=== PATIENT | female | born 1950 | race Caucasian/White ===

== ENCOUNTER → 2016-04-18 | Outpatient (CLI) | payer MEDICARE, BC ==
--- NOTE | 2016-04-18 11:34 | FL ---
ESOPHOGRAM. HISTORY: Dysphagia Esophagram was performed per the air contrast technique. The patient swallowed barium and effervesce nt crystals without difficulty or delay. Esophageal peristalsis and motility appear to be within normal limits. There is no evidence for filling defect, mass or diverticulum. There is a small reducible hiatal hernia. Subsequently single contrast cervical esophagram was performed which fails demonstrate evidence for a spiration penetration or mass. IMPRESSION: There is a small reducible hiatal hernia.
== END | disposition home or self-care (01) ==
LOC: RADFLWHC 10:51
PROVIDERS: ATTEND Surgery
DX: K44.9 Diaphragmatic hernia without obstruction or gangrene (principal)
CPT/HCPCS: 74220

== ENCOUNTER → 2016-04-22 | Day surgery (SDC) | payer MEDICARE, BC ==
[2016-04-17 16:16] VITALS: BMI 33.0
[~2016-04-22] MED LIST: LACTATED RINGERS 1,000 ML IV SCH; LIDOCAINE 1% 20 ML VIAL (10MG/ML) FOR IV START INTRADERMA PRN; PROPOFOL 10 MG/ML 20 ML VIAL IV ONE
[2016-04-22 09:50] VITALS: RESP 16; TEMP 97.1
--- NOTE | 2016-04-22 10:15 | P.GSHP ---
History of Present Illness H&P Date: 04/22/16 Chief Complaint: . This is a 65-year-old female with complaints of GERD. Patient has a previous history of a vertical stapled gastroplasty performed over 30 years ago.. She states her GERD symptoms and increased over the last few months. - Constitutional Constitutional: Reports as per HPI Past Medical History Past Medical History: GERD/Reflux, Hyperlipidemia Additional Past Medical History / Comment(s): vertigo, DDD, gastric bypass History of Any Multi-Drug Resistant Organisms: None Reported Past Surgical History: Back Surgery, Bariatric Surgery, Hysterectomy, Joint Replacement, Orthopedic Surgery Additional Past Surgical History / Comment(s): fusion neck and back, bipin shoulder arthroscopy, rt ankle fusion surgery for gastric reflux Past Anesthesia/Blood Transfusion Reactions: Previous Problems w/ Anesthesia Additional Past Anesthesia/Blood Transfusion Reaction / Comment(s): difficulty coming out of anesthesia Past Psychological History: Anxiety Smoking Status: Former smoker Past Alcohol Use History: Rare Additional Past Alcohol Use History / Comment(s): smoked 20-30 years 2 ppd stopped 24 years ago Past Drug Use History: None Reported - Past Family History Mother Family Medical History: No Reported History Medications and Allergies Home Medications Medication Instructions Recorded Confirmed Type ALPRAZolam 1 mg PO BID 04/17/16 04/22/16 History Aspirin [Adult Low Dose Aspirin EC] 81 mg PO DAILY 04/17/16 04/17/16 History Celecoxib [CeleBREX] 200 mg PO DAILY 04/17/16 04/22/16 History Cholecalciferol [Vitamin D3] 1,000 unit PO DAILY 04/17/16 04/22/16 History Citalopram Hydrobromide 20 mg PO DAILY 04/17/16 04/22/16 History Ferrous Sulfate [Feosol] 325 mg PO DAILY 04/17/16 04/17/16 History HYDROcodone/APAP 7.5-325MG [[place] 1 tab PO DAILY PRN 04/17/16 04/22/16 History 7.5-325] Meclizine HCl 12.5 mg PO DAILY 04/17/16 04/22/16 History Multivitamins, Thera [Multivitamin] 1 tab PO DAILY 04/17/16 04/17/16 History [place]-3 Fatty Acids/Fish Oil [Fish 1 each PO DAILY 04/17/16 04/17/16 History Oil 1,000 mg Softgel] Ranitidine HCl 150 mg PO DAILY 04/17/16 04/22/16 History Simvastatin [Zocor] 40 mg PO DAILY 04/17/16 04/22/16 History Vitamin B Complex 1 each PO DAILY 04/17/16 04/22/16 History Allergies Allergy/AdvReac Type Severity Reaction Status Date / Time No Known Allergies Allergy Verified 04/17/16 15:49 Surgical - Exam Vital Signs Temp Pulse Resp BP Pulse Ox 97.1 F L 70 16 113/73 93 L 04/22/16 09:49 04/22/16 09:49 04/22/16 09:49 04/22/16 09:49 04/22/16 09:49 - General well developed, no distress - Eyes PERRL - ENT normal pinna - Neck no masses - Respiratory normal expansion - Cardiovascular Rhythm: regular - Abdomen Abdomen: soft, non tender Assessment and Plan Plan: GERD. We'll perform EGD
--- NOTE | 2016-04-22 10:34 | P.OP ---
Date of Procedure: 04/22/16 Preoperative Diagnosis: GERD Postoperative Diagnosis: Possible gastric outlet obstruction Procedure(s) Performed: EGD Anesthesia: MAC Surgeon: Escobar Silva Pathology: none sent Condition: stable Disposition: PACU Description of Procedure: The patient's placed on the endoscopy table in the lateral position. She received IV sedation. The gastroscope some placed oropharynx and passed into the esophagus and into the stomach. In the proximal stomach there appeared to be a slightly enlarged pouch with evidence of some blue suture material. There was an opening of the distal stomach and this was entered the gastric outlet could not be visualized. There was some retained food in the stomach. Multiple attempts were made to find the gastric outlet however this wasn't possible. Scope was then withdrawn. There is known to any injury to the stomach. The appearance of the gastric gastrostomy was patent. And then the GE junction was at 38 cm. There is evidence of some distal esophagitis. The proximal esophagus. Normal. Scope was withdrawn for patient. This patient was scheduled for upper GI with small bowel follow-through to evaluate gastric emptying.
[2016-04-22 11:36] VITALS: BP 107/55; PULSE 66
--- NOTE | 2016-04-22 15:20 | FL ---
EXAMINATION TYPE: FL UGI DATE OF EXAM: 04/22/2016 1:05 PM COMPARISON: CT chest 01/18/2016 HISTORY: Gastric outlet obstruction TECHNIQUE: A single contrast UGI study is performed. FINDINGS: The esophagus empties normally into the stomach. Reflux was evident during this examination. Fundus and body of the stomach appear normal. The antrum of the stomach appears to be resected with c ontrast entering the proximal duodenum within the upper portion of the stomach near the gastroesophag eal junction. There is marked hesitancy entering the suspected anastomosis of the duodenum with the s tomach. However, focal stenosis is not identified. Patient exhibited no symptoms of nausea during thi s delayed emptying. The duodenum appears normal without intraluminal or extramural defects. IMPRESSIONS: 1. There appears to be hesitancy of contrast entering what appears to be an anastomosis between the d uodenum and the body of the stomach near the gastroesophageal junction. Focal stenosis however is not identified. The proximal duodenum appears normal.
== END ==
LOC: ORWHC2ENDO 09:23
PROVIDERS: ATTEND Surgery
DX: K21.9 Gastro-esophageal reflux disease without esophagitis (principal); K31.89 Other diseases of stomach and duodenum; Z98.84 Bariatric surgery status; E78.5 Hyperlipidemia, unspecified; F41.9 Anxiety disorder, unspecified; F32.9 Major depressive disorder, single episode, unspecified; Z79.82 Long term (current) use of aspirin; Z79.891 Long term (current) use of opiate analgesic; Z79.899 Other long term (current) drug therapy; Z87.891 Personal history of nicotine dependence
CPT/HCPCS: 74240; 43235; J2704

== ENCOUNTER 2018-05-11 07:40 | Day surgery (SDC) | payer MEDICARE, BC ==
[2018-05-07 08:44] VITALS: BMI 32.3
[~2018-05-11 07:40] MED LIST changes: -LIDOCAINE 1% 20 ML VIAL (10MG/ML) FOR IV START INTRADERMA PRN; -PROPOFOL 10 MG/ML 20 ML VIAL IV ONE
[2018-05-11] MEDS ORDERED: LIDOCAINE 1% 20 ML VIAL (10MG/ML) FOR IV START INTRADERMA ONE (07:59)
[2018-05-11 08:00] VITALS: RESP 16; TEMP 97.2
[2018-05-11] MEDS ORDERED: MIDAZOLAM 2 MG/2 ML VIAL ONE (09:22)
[2018-05-11] MEDS ORDERED: LIDOCAINE 1% INJ 10MG/ML (20 ML MDV) ONE (09:22)
[2018-05-11] MEDS ORDERED: PROPOFOL 10 MG/ML 20 ML VIAL IV ONE (09:22)
--- NOTE | 2018-05-11 09:37 | P.GSHP ---
History of Present Illness H&P Date: 05/11/18 Chief Complaint: Screening colonoscopy This is a 68-year-old female who presents today for screening colonoscopy. Patient denies a significant GI complaints. Past Medical History Past Medical History: GERD/Reflux, Hyperlipidemia Additional Past Medical History / Comment(s): vertigo, DDD, gastric bypass History of Any Multi-Drug Resistant Organisms: None Reported Past Surgical History: Back Surgery, Bariatric Surgery, Hysterectomy, Joint Replacement, Orthopedic Surgery Additional Past Surgical History / Comment(s): fusion neck and back, bipin shoulder arthroscopy, rt ankle fusion surgery for gastric reflux, rt reverse shoulder, bipin knee replacement, lt hip replacement Past Anesthesia/Blood Transfusion Reactions: Previous Problems w/ Anesthesia Additional Past Anesthesia/Blood Transfusion Reaction / Comment(s): difficulty coming out of anesthesia Smoking Status: Former smoker - Past Family History Mother Family Medical History: Cancer Father Family Medical History: Cancer Medications and Allergies Home Medications Medication Instructions Recorded Confirmed Type Aspirin [Adult Low Dose Aspirin EC] 81 mg PO DAILY 04/17/16 05/11/18 History Celecoxib [CeleBREX] 200 mg PO DAILY 04/17/16 05/11/18 History Cholecalciferol [Vitamin D3] 1,000 unit PO DAILY 04/17/16 05/11/18 History Citalopram Hydrobromide 20 mg PO HS 04/17/16 05/11/18 History [Citalopram HBr] Ferrous Sulfate [Feosol] 325 mg PO DAILY 04/17/16 05/11/18 History Multivitamins, Thera [Multivitamin] 1 tab PO DAILY 04/17/16 05/11/18 History [place]-3 Fatty Acids/Fish Oil [Fish 1 each PO DAILY 04/17/16 05/11/18 History Oil 1,000 mg Softgel] Ranitidine HCl 150 mg PO DAILY 04/17/16 05/11/18 History Simvastatin [Zocor] 40 mg PO HS 04/17/16 05/11/18 History Vitamin B Complex 1 each PO DAILY 04/17/16 05/11/18 History ALPRAZolam [Xanax] 0.5 mg PO HS 05/07/18 05/11/18 History Omeprazole 40 mg PO HS 05/07/18 05/11/18 History Allergies Allergy/AdvReac Type Severity Reaction Status Date / Time No Known Allergies Allergy Verified 05/11/18 07:58 Surgical - Exam Vital Signs Temp Pulse Resp BP Pulse Ox 97.2 F L 86 16 134/71 95 05/11/18 07:59 05/11/18 07:59 05/11/18 07:59 05/11/18 07:59 05/11/18 07:59 - General well developed, well nourished, no distress - Eyes PERRL - ENT normal pinna - Neck no masses - Respiratory normal expansion - Cardiovascular Rhythm: regular - Abdomen Abdomen: soft, non tender Assessment and Plan Assessment: We'll perform screening colonoscopy.
--- NOTE | 2018-05-11 09:54 | P.OP ---
Date of Procedure: 05/11/18 Preoperative Diagnosis: Screening colonoscopy Postoperative Diagnosis: Mild diverticulosis Procedure(s) Performed: Colonoscopy Anesthesia: MAC Surgeon: Escobar Silva Pathology: none sent Condition: stable Disposition: PACU Description of Procedure: The patient's placed on the endoscopy table in the lateral position. She received IV sedation. Digital rectal exam was performed which revealed no rebound is. The flexible colonoscope was then placed patient anus and passed throughout the entire colon. The ileocecal valve was visualized. The cecum, ascending and transverse colon appeared normal. The descending and sigmoid colon there was a few scattered diverticula. There is no evidence of any polyps or tumors. Scope was then brought back into the rectum and this appeared normal. Scope was withdrawn for patient.
[2018-05-11 10:19] VITALS: BP 116/75; PULSE 70
== END 2018-05-11 10:33 | disposition home or self-care (01) ==
LOC: ORWHC2ENDO 07:40
PROVIDERS: ATTEND Surgery
DX: Z12.11 Encounter for screening for malignant neoplasm of colon (principal); K57.90 Diverticulosis of intestine, part unspecified, without perforation or abscess without bleeding; K21.9 Gastro-esophageal reflux disease without esophagitis; E78.5 Hyperlipidemia, unspecified; Z98.84 Bariatric surgery status; Z90.710 Acquired absence of both cervix and uterus; Z87.891 Personal history of nicotine dependence; Z79.82 Long term (current) use of aspirin; Z79.899 Other long term (current) drug therapy
CPT/HCPCS: J2250; J2001; J2704; G0121

== ENCOUNTER → 2019-03-10 | Outpatient (CLI) | payer MEDICARE, BC ==
--- NOTE | 2019-03-10 11:40 | XR ---
KUB HISTORY: Left upper quadrant pain, left-sided abdominal pain KUB submitted on 2 images There are surgical maira and clips present in the upper abdomen, postop changes are noted status po st lumbosacral fusion. No evident bowel obstruction or pneumoperitoneum. Multiple calcifications in t he pelvis felt likely represent phleboliths. Patient is status post left hip arthroplasty. Osteoarthr itic change noted in right hip. Degenerative disc changes in the visualized spine. Retained fecal ruby ris present within the distribution of the colon. IMPRESSION: Postop changes. Correlate for possible fecal stasis.
--- NOTE | 2019-03-10 11:46 | XR ---
EXAMINATION TYPE: XR chest 2V DATE OF EXAM: 03/10/2019 COMPARISON: Prior chest x-ray 10/29/2015 HISTORY: Left upper quadrant pain, left-sided chest pain TECHNIQUE: Frontal and lateral views of the chest are obtained. FINDINGS: Patient is status post right shoulder arthroplasty. Suspect there is a spinal curvature. C ardiac mediastinal silhouette, pulmonary vascularity and yasmin within normal limits. No evident airspa ce disease, pneumothorax, or pleural effusion. There is eventration of the right hemidiaphragm. Surgi mikki clips are present in the upper abdomen. IMPRESSION: No acute cardiopulmonary process.
== END | disposition home or self-care (01) ==
LOC: RADXRMAIN 10:05
PROVIDERS: ATTEND Family Medicine
DX: R07.9 Chest pain, unspecified (principal); R10.9 Unspecified abdominal pain
CPT/HCPCS: 71046; 74018

== ENCOUNTER → 2020-03-08 | Day surgery (SDC) | payer MEDICARE, BC ==
[2020-03-07 12:04] VITALS: BMI 30.9
[~2020-03-08] MED LIST changes: +LIDOCAINE 1% (10MG/ML) FOR IV START INTRADERMA PRN; +LIDOCAINE 1% INJ 10MG/ML (20 ML MDV) ONE; +MIDAZOLAM 2 MG/2 ML VIAL ONE; +PROPOFOL 10 MG/ML 20 ML VIAL IV ONE; +fentaNYL (PF) 50 MCG/ML 2 ML AMP ONE
[2020-03-08 11:30] VITALS: RESP 16; TEMP 97.1
--- NOTE | 2020-03-08 12:34 | P.GSHP ---
History of Present Illness H&P Date: 03/08/20 Chief Complaint: GERD Cyst 69-year-old female who's had extensive history of previous gastric surgery. Patient presents today for EGD. She's had issues with complaints of epigastric dull pain and GERD. Past Medical History Past Medical History: GERD/Reflux, Hyperlipidemia, Musculoskeletal Disorder, Osteoarthritis (OA) Additional Past Medical History / Comment(s): Vertigo, DDD, gastric bypass. History of Any Multi-Drug Resistant Organisms: None Reported Past Surgical History: Back Surgery, Bariatric Surgery, Cholecystectomy, Hysterectomy, Joint Replacement, Orthopedic Surgery Additional Past Surgical History / Comment(s): Fusion of neck and back, bilateral shoulder arthroscopy, right ankle fusion, surgery for gastric reflux, right reverse shoulder, bilateral knee replacements, left hip replacement. Past Anesthesia/Blood Transfusion Reactions: Previous Problems w/ Anesthesia Additional Past Anesthesia/Blood Transfusion Reaction / Comment(s): Difficulty coming out of anesthesia. Past Psychological History: Depression Smoking Status: Former smoker Past Alcohol Use History: Rare Additional Past Alcohol Use History / Comment(s): Smoked 20-30 years, 2 ppd, quit 24 years ago. Past Drug Use History: None Reported - Past Family History Mother Family Medical History: Cancer Father Family Medical History: Cancer Son(s) Family Medical History: Deep Vein Thrombosis (DVT) Medications and Allergies Home Medications Medication Instructions Recorded Confirmed Type Aspirin [Adult Low Dose Aspirin EC] 81 mg PO DAILY 04/17/16 03/07/20 History Celecoxib [CeleBREX] 200 mg PO DAILY 04/17/16 03/07/20 History Cholecalciferol [Vitamin D3] 1,000 unit PO DAILY 04/17/16 03/07/20 History Citalopram Hydrobromide 20 mg PO HS 04/17/16 03/07/20 History [Citalopram HBr] Ferrous Sulfate [Feosol] 325 mg PO DAILY 04/17/16 03/07/20 History Multivitamins, Thera [Multivitamin] 1 tab PO DAILY 04/17/16 03/07/20 History [place]-3 Fatty Acids/Fish Oil [Fish 1 each PO DAILY 04/17/16 03/07/20 History Oil 1,000 mg Softgel] Simvastatin [Zocor] 40 mg PO HS 04/17/16 03/07/20 History Vitamin B Complex 1 each PO DAILY 04/17/16 03/07/20 History ALPRAZolam [Xanax] 0.5 mg PO HS 05/07/18 03/07/20 History Famotidine [Pepcid] 40 mg PO BID 03/07/20 03/07/20 History Allergies Allergy/AdvReac Type Severity Reaction Status Date / Time No Known Allergies Allergy Verified 03/08/20 11:24 Surgical - Exam Vital Signs Temp Pulse Resp BP Pulse Ox 97.1 F L 70 16 115/56 98 03/08/20 11:29 03/08/20 11:29 03/08/20 11:29 03/08/20 11:29 03/08/20 11:29 - General well developed - Eyes PERRL - ENT normal pinna - Neck no masses - Respiratory normal expansion - Cardiovascular Rhythm: regular - Abdomen Abdomen: soft, non tender Assessment and Plan Assessment: History of GERD. We'll perform EGD.
--- NOTE | 2020-03-08 12:41 | P.OP ---
Date of Procedure: 03/08/20 Preoperative Diagnosis: GERD Postoperative Diagnosis: Mild esophagitis Procedure(s) Performed: EGD Anesthesia: MAC Surgeon: Escobar Silva Pathology: other (Esophagus) Condition: stable Disposition: PACU Description of Procedure: The patient's placed on the endoscopy table in the lateral position she received IV sedation. The gastroscope patient oropharynx and passed into esophagus into the stomach. The patient had a previous gastrojejunostomy. The gastrojejunostomy appeared patent. There was no evidence of any y inflammatory changes or ulcers at the gastrojejunostomy.. This point scope withdrawn. The remainder stomach appeared normal. The patient's GE junction was at 40 cm the distal esophagus appeared mildly inflamed a biopsies performed. The proximal esophagus appeared normal. Scope withdrawn for patient.
[2020-03-08 13:07] VITALS: BP 106/66; PULSE 71
== END | disposition home or self-care (01) ==
LOC: ORWHC2ENDO 10:42
PROVIDERS: ATTEND Surgery
DX: K21.00 Gastro-esophageal reflux disease with esophagitis, without bleeding (principal); R10.13 Epigastric pain; E78.5 Hyperlipidemia, unspecified; Z98.84 Bariatric surgery status; M19.90 Unspecified osteoarthritis, unspecified site; R42 Dizziness and giddiness; Z90.49 Acquired absence of other specified parts of digestive tract; Z90.710 Acquired absence of both cervix and uterus; Z98.1 Arthrodesis status; Z96.653 Presence of artificial knee joint, bilateral; Z96.642 Presence of left artificial hip joint; Z98.890 Other specified postprocedural states; F32.9 Major depressive disorder, single episode, unspecified; Z87.891 Personal history of nicotine dependence; Z80.9 Family history of malignant neoplasm, unspecified; Z82.49 Family history of ischemic heart disease and other diseases of the circulatory system; Z79.1 Long term (current) use of non-steroidal anti-inflammatories (NSAID); Z79.82 Long term (current) use of aspirin; Z79.899 Other long term (current) drug therapy
CPT/HCPCS: 88305; 43239; J2250; J2001; J3010; J2704

== ENCOUNTER → 2021-04-12 | Outpatient (CLI) | payer MEDICARE, BC ==
--- NOTE | 2021-04-12 12:06 | XR ---
EXAMINATION TYPE: XR thoracic spine complete DATE OF EXAM: 04/12/2021 CLINICAL HISTORY: pain TECHNIQUE: Frontal, lateral, and swimmer's view of thoracic spine are obtained. COMPARISON: None. FINDINGS: Thoracic spine show satisfactory alignment without evidence of acute fracture or dislocatio n. Vertebral body heights are preserved. Moderate multilevel degenerative disc disease and spondylos is. Visualized ribs are unremarkable. IMPRESSION: No acute fracture or dislocation is seen in the thoracic spine. ICD 10 NO FRACTURE, INIT IAL EVALUATION
== END | disposition home or self-care (01) ==
LOC: RADXRMAIN 10:56
PROVIDERS: ATTEND Family Medicine
DX: M54.6 Pain in thoracic spine (principal)
CPT/HCPCS: 72072

== ENCOUNTER → 2023-08-11 | Outpatient (CLI) | payer MEDICARE, BC ==
[2023-08-11 10:30] LABS: Basophils # (A) 0.06 X 10*3/uL (0.00-0.10); Basophils % (A) 0.7 %; Eosinophils # (A) 0.21 X 10*3/uL (0.04-0.35); Eosinophils % (A) 2.3 %; HCT 43.1 % (37.2-46.3); HGB 13.3 g/dL (12.0-15.0); Lymphocytes # (A) 1.68 X 10*3/uL (0.90-5.00); Lymphocytes % (A) 18.3 %; MCH 30.3 pg (27.0-32.0); MCHC 30.9 g/dL (32.0-37.0); MCV 98.2 FL (80.0-97.0); Monocytes # (A) 0.44 X 10*3/uL (0.20-1.00); Monocytes % (A) 4.8 %; NRBC Per 100 WBC 0 X 10*3/uL (0.00-0.01); Neutrophils # (A) 6.77 X 10*3/uL (1.80-7.70); Neutrophils % (A) 73.7 %; Platelet Count 171 X 10*3/uL (140-440); RBC 4.39 X 10*6/uL (4.10-5.20); WBC 9.18 X 10*3/uL (4.50-10.00)
[2023-08-11 10:52] LABS: ALT 21 U/L (8-44); AST 24 U/L (13-35); Albumin 4.3 g/dL (3.8-4.9); Albumin/Globulin Ratio 2.05 Ratio (1.60-3.17); Alkaline Phosphatase 86 U/L (41-126); BUN/Creat Ratio 24.38 Ratio (12.00-20.00); Blood Urea Nitrogen 19.5 mg/dL (9.0-27.0); Calcium 9.2 mg/dL (8.7-10.3); Carbon Dioxide 25.1 mmol/L (21.6-31.8); Chloride 109 mmol/L (96-109); Chol/HDL Ratio 2.47 Ratio; Globulin 2.1 g/dL (1.6-3.3); Glucose 98 mg/dL (70-110); LDL Cholesterol,Calculated 57.2 mg/dL (0.0-131.0); Potassium 4.3 mmol/L (3.5-5.5); Sodium 146 mmol/L (135-145); Total Bilirubin 0.2 mg/dL (0.3-1.2); Total Protein 6.4 g/dL (6.2-8.2)
== END | disposition home or self-care (01) ==
LOC: LABWHC1 07:24
PROVIDERS: ATTEND Family Medicine
DX: R53.83 Other fatigue (principal)
CPT/HCPCS: 36415; 80053; 80061; 84443; 85025

== ENCOUNTER 2023-11-14 16:19 | Inpatient (IN) | payer MEDICARE, BC ==
--- NOTE | 2023-11-14 17:07 | ED ---
Abdominal Pain HPI - General Chief Complaint: Nausea/Vomiting/Diarrhea Stated Complaint: Nausea, vomiting Time Seen by Provider: 11/14/23 16:23 Source: patient, EMS, RN notes reviewed Mode of arrival: EMS Limitations: no limitations - History of Present Illness Initial Comments: This is a 73-year-old female who presents to the emergency department for ab dominal pain. States that it started this morning. Pain is largely in the upper abdomen. She has associated nausea and vomiting. She was given oral Zofran by EMS without any relief in symptoms. Reports mild diarrhea. Denies any fevers/chills or sick contacts. MD Complaint: abdominal pain - Related Data Home Medications Medication Instructions Recorded Confirmed Celecoxib [CeleBREX] 200 mg PO BID 04/17/16 11/14/23 Citalopram Hydrobromide 20 mg PO HS 04/17/16 11/14/23 [Citalopram HBr] Ferrous Sulfate [Feosol] 325 mg PO DAILY 04/17/16 11/14/23 Multivitamins, Thera [Multivitamin] 1 tab PO DAILY 04/17/16 11/14/23 Simvastatin [Zocor] 40 mg PO HS 04/17/16 11/14/23 Famotidine [Pepcid] 40 mg PO HS 03/07/20 11/14/23 Ascorbic Acid [Vitamin C] 1,000 mg PO DAILY 11/14/23 11/14/23 Cholecalciferol [Vitamin D3 (25 25 mcg PO DAILY 11/14/23 11/14/23 Mcg = 1000 Iu)] Cyanocobalamin (Vitamin B-12) 1,000 mcg PO DAILY 11/14/23 11/14/23 [Vitamin B-12] Gabapentin [Neurontin] 100 mg PO BID 11/14/23 11/14/23 HYDROcodone/APAP 7.5-325MG [[place] 1 tab PO BID PRN 11/14/23 11/14/23 7.5-325] Omeprazole 40 mg PO DAILY 11/14/23 11/14/23 Solifenacin Succinate [Vesicare] 5 mg PO DAILY 11/14/23 11/14/23 Zinc Sulfate 50 mg PO DAILY 11/14/23 11/14/23 Allergies Allergy/AdvReac Type Severity Reaction Status Date / Time No Known Allergies Allergy Verified 11/14/23 19:22 Review of Systems ROS Statement: Those systems with pertinent positive or pertinent negative responses have been documented in the HPI. ROS Other: All systems not noted in ROS Statement are negative. Past Medical History Past Medical History: GERD/Reflux, Hyperlipidemia, Musculoskeletal Disorder, Osteoarthritis (OA) Additional Past Medical History / Comment(s): Vertigo, DDD, gastric bypass. History of Any Multi-Drug Resistant Organisms: None Reported Past Surgical History: Back Surgery, Bariatric Surgery, Cholecystectomy, Hysterectomy, Joint Replacement, Orthopedic Surgery Additional Past Surgical History / Comment(s): Fusion of neck and back, bilateral shoulder arthroscopy, right ankle fusion, surgery for gastric reflux, right reverse shoulder, bilateral knee replacements, left hip replacement. Past Anesthesia/Blood Transfusion Reactions: Previous Problems w/ Anesthesia Additional Past Anesthesia/Blood Transfusion Reaction / Comment(s): Difficulty coming out of anesthesia. Past Psychological History: Depression Smoking Status: Former smoker Past Alcohol Use History: Rare Past Drug Use History: None Reported - Past Family History Mother Family Medical History: Cancer Father Family Medical History: Cancer Son(s) Family Medical History: Deep Vein Thrombosis (DVT) General Exam Limitations: no limitations General appearance: alert, in distress Head exam: Present: atraumatic, normocephalic, normal inspection Respiratory exam: Present: normal lung sounds bilaterally. Absent: respiratory distress, wheezes, rales, rhonchi, stridor Cardiovascular Exam: Present: regular rate, normal rhythm, normal heart sounds. Absent: systolic murmur, diastolic murmur, rubs, gallop, clicks GI/Abdominal exam: Present: soft, tenderness (Upper abdomen). Absent: distended Neurological exam: Present: alert, oriented X3, CN II-XII intact Psychiatric exam: Present: normal affect, normal mood Skin exam: Present: warm, dry, intact, normal color. Absent: rash Course Vital Signs 11/14/23 11/14/23 11/14/23 16:23 16:30 17:30 Temperature 98.1 F Pulse Rate 66 75 Respiratory 17 Rate Blood Pressure 162/87 162/87 146/82 O2 Sat by Pulse 100 100 85 L Oximetry 11/14/23 11/14/23 18:20 20:39 Temperature 98.5 F Pulse Rate 83 79 Respiratory 18 Rate Blood Pressure 126/71 146/86 O2 Sat by Pulse 98 96 Oximetry Medical Decision Making - Medical Decision Making This is a 73 year old female who presents to the emergency department for abdomi nal pain, nausea, and vomiting. Was pt. sent in by a medical professional or institution? @ -No Did you speak to anyone other than the patient for history? @ -No Did you review nursing and triage notes? @ -Yes, and I agree, it is accurate with regards to the patient's symptoms. Were old charts reviewed? @ -No Differential Diagnosis? @ -Differential Abdominal Pain Women: Appendicitis, Cholecystitis, diverticulosis, ischemic bowel, pancreatitis, hepatitis, UTI, gastroenteritis, AAA, incarcerated hernia, bowel obstruction, constipation, inflammatory bowel, hepatitis, peptic ulcer disease, splenic infarction, perforated viscus, vulvitis, ovarian torsion, PID, kidney stone, placenta abruption, this is not meant to be an all-inclusive list EKG interpreted by me (3pts min.)? @ -EKG interpreted by me demonstrating the following: Sinus rhythm. Ventricular rate 67 bpm, TN interval 211 ms, QRS duration 105 ms, QTc 433 ms. X-rays interpreted by me (1pt min.)? @ -Not obtained CT interpreted by me (1pt min.)? @ -CT scan of the abdomen and pelvis obtained. My interpretation identifies fluid-filled and dilated loops of small bowel. U/S interpreted by me (1pt. min.)? @ -Not obtained What testing was considered but not performed? (CT, X-rays, U/S, labs)? Why? @ -None What meds were considered but not given? Why? @ -None Did you discuss the management of the patient with other professionals? @ -Yes, Dr. Silva, general surgery. He advised an NG tube and antibiotics. Dr. Mccloud accepts the patient for admission to medicine. Did you reconcile home meds? @ -Yes Was smoking cessation discussed for >3mins.? @ -No Was critical care preformed (if so, how long)? @ -No Were there social determinants of health that impacted care today? How? (Homelessness, low income, unemployed, alcoholism, drug addiction, transportation, low edu. Level, literacy, decrease access to med. care, long term, rehab)? @ -No Was there de-escalation of care discussed even if they declined? (Discuss DNR or withdrawal of care, Hospice)? @ -No What co-morbidities impacted this encounter? (DM, HTN, Smoking, COPD, CAD, Cancer, CVA, Hep., AIDS, mental health diagnosis, sleep apnea, morbid obesity)? @ -GERD Was patient admitted / discharged? @ -Admitted. Lab work demonstrates mild leukocytosis. Lab work also suggesti ve of pancreatitis. Amylase 1628 [place] [address]. Lactic acid mildly elevated at 2.1. Lab work otherwise unremarkable. Patient no longer has her gallbladder. Denies any alcohol use. Does admit to problems with her cholesterol and triglycerides. Lipid panel ordered. CT scan of the abdomen and pelvis demonstrates a small bowel obstruction with suspected transition point in the mid to lower abdomen. Pancreas is noted to be unremarkable on the CT scan. Case discussed with Dr. Silva, general surgery. He advised an NG tube and antibiotics. NG tube was inserted by nursing staff and hooked up to intermittent low wall suction. Blood cultures were obtained and she was started on Zosyn. Patient kept n.p.o. and admitted to medicine for pancreatitis and small bowel obstruction. General surgery on consult. Case discussed with ED attending Dr. Kong. Undiagnosed new problem with uncertain prognosis? @ -None Drug Therapy requiring intensive monitoring for toxicity (Heparin, Nitro, Insulin, Cardizem)? @ -None Were any procedures done? @ -None Diagnosis/symptom? @ -SBO, pancreatitis Acute, or Chronic, or Acute on Chronic? @ -Acute Uncomplicated (without systemic symptoms) or Complicated (systemic symptoms)? @ -Complicated Side effects of treatment? @ -None Exacerbation, Progression, or Severe Exacerbation] @ -Not applicable Poses a threat to life or bodily function? @ -Yes, can lead to bowel rupture or intra-abdominal infection - Lab Data Result diagrams: 11/14/23 17:07 11/14/23 17:07 Lab Results 11/14/23 11/14/23 11/14/23 Range/Units 17:07 17:07 17:07 WBC 11.8 H (3.8-10.6) k/uL RBC 4.45 (3.80-5.40) m/uL Hgb 13.8 (11.4-16.0) gm/dL Hct 41.9 (34.0-46.0) % MCV 94.2 (80.0-100.0) fL MCH 31.0 (25.0-35.0) pg MCHC 33.0 (31.0-37.0) g/dL RDW 13.3 (11.5-15.5) % Plt Count 212 (150-450) k/uL MPV 9.1 Neutrophils % 89 % Lymphocytes % 7 % Monocytes % 3 % Eosinophils % 0 % Basophils % 0 % Neutrophils # 10.5 H (1.3-7.7) k/uL Lymphocytes # 0.8 L (1.0-4.8) k/uL Monocytes # 0.4 (0-1.0) k/uL Eosinophils # 0.0 (0-0.7) k/uL Basophils # 0.0 (0-0.2) k/uL Sodium 137 (137-145) mmol/L Potassium 4.2 (3.5-5.1) mmol/L Chloride 104 (98-107) mmol/L Carbon Dioxide 23 (22-30) mmol/L Anion Gap 10 mmol/L BUN 24 H (7-17) mg/dL Creatinine 0.56 (0.52-1.04) mg/dL Est GFR (CKD-EPI)AfAm >90 (>60 ml/min/1.73 sqM) Est GFR (CKD-EPI)NonAf >90 (>60 ml/min/1.73 sqM) Glucose 170 H (74-99) mg/dL Lactic Ac Sepsis Rflx Plasma Lactic Acid Hugo 2.1 H* (0.7-2.0) mmol/L Calcium 9.7 (8.4-10.2) mg/dL Magnesium 2.0 (1.6-2.3) mg/dL Total Bilirubin 0.7 (0.2-1.3) mg/dL AST 40 H (14-36) U/L ALT 28 (4-34) U/L Alkaline Phosphatase 96 (38-126) U/L Troponin I (0.000-0.034) ng/mL Total Protein 7.0 (6.3-8.2) g/dL Albumin 4.2 (3.5-5.0) g/dL Amylase 1628 H* (30-110) U/L Lipase 99290 H (23-300) U/L 11/14/23 11/14/23 Range/Units 17:07 17:39 WBC (3.8-10.6) k/uL RBC (3.80-5.40) m/uL Hgb (11.4-16.0) gm/dL Hct (34.0-46.0) % MCV (80.0-100.0) fL MCH (25.0-35.0) pg MCHC (31.0-37.0) g/dL RDW (11.5-15.5) % Plt Count (150-450) k/uL MPV Neutrophils % % Lymphocytes % % Monocytes % % Eosinophils % % Basophils % % Neutrophils # (1.3-7.7) k/uL Lymphocytes # (1.0-4.8) k/uL Monocytes # (0-1.0) k/uL Eosinophils # (0-0.7) k/uL Basophils # (0-0.2) k/uL Sodium (137-145) mmol/L Potassium (3.5-5.1) mmol/L Chloride (98-107) mmol/L Carbon Dioxide (22-30) mmol/L Anion Gap mmol/L BUN (7-17) mg/dL Creatinine (0.52-1.04) mg/dL Est GFR (CKD-EPI)AfAm (>60 ml/min/1.73 sqM) Est GFR (CKD-EPI)NonAf (>60 ml/min/1.73 sqM) Glucose (74-99) mg/dL Lactic Ac Sepsis Rflx Y Plasma Lactic Acid Hugo (0.7-2.0) mmol/L Calcium (8.4-10.2) mg/dL Magnesium (1.6-2.3) mg/dL Total Bilirubin (0.2-1.3) mg/dL AST (14-36) U/L ALT (4-34) U/L Alkaline Phosphatase (38-126) U/L Troponin I <0.012 (0.000-0.034) ng/mL Total Protein (6.3-8.2) g/dL Albumin (3.5-5.0) g/dL Amylase (30-110) U/L Lipase (23-300) U/L - Radiology Data Radiology results: report reviewed, image reviewed Disposition Clinical Impression: SBO (small bowel obstruction), Pancreatitis Disposition: ADMITTED IP TO THIS HOSP
[2023-11-14 17:13] LABS: Basophils % (A) 0 %; Eosinophils % (A) 0 %; HCT 41.9 % (34.0-46.0); HGB 13.8 gm/dL (11.4-16.0); Lymphocytes # (A) 0.8 k/uL (1.0-4.8); Lymphocytes % (A) 7 %; MCV 94.2 fL (80.0-100.0); Mean Platelet Volume 9.1; Monocytes # (A) 0.4 k/uL (0-1.0); Monocytes % (A) 3 %; Neutrophils # (A) 10.5 k/uL (1.3-7.7); Neutrophils % (A) 89 %; Platelet Count 212 k/uL (150-450); RBC 4.45 m/uL (3.80-5.40); RDW 13.3 % (11.5-15.5); WBC 11.8 k/uL (3.8-10.6)
[2023-11-14] MEDS: SODIUM CHLORIDE 0.9% 1,000 ML IV STA (17:16)
[2023-11-14] MEDS: METOCLOPRAMIDE 5 MG/ML 2 ML VIAL IVP STA (17:17)
[2023-11-14] MEDS: HYDROmorphone 1 MG/ML 1 ML SYRINGE IVP STA (17:18)
[2023-11-14 17:24] LABS: ALT 28 U/L (4-34); AST 40 U/L (14-36); African American GFR (CKD) >90 (>60 ml/min/1.73 sqM); Albumin 4.2 g/dL (3.5-5.0); Alkaline Phosphatase 96 U/L (38-126); Anion Gap 10 mmol/L; Blood Urea Nitrogen 24 mg/dL (7-17); Calcium 9.7 mg/dL (8.4-10.2); Carbon Dioxide 23 mmol/L (22-30); Chloride 104 mmol/L (98-107); Glucose 170 mg/dL (74-99); Non-African American GFR(CKD) >90 (>60 ml/min/1.73 sqM); Potassium 4.2 mmol/L (3.5-5.1); Sodium 137 mmol/L (137-145); Total Bilirubin 0.7 mg/dL (0.2-1.3)
[2023-11-14 17:38] LABS: Amylase 1628 U/L (30-110)
[2023-11-14 17:42] LABS: Lipase 15828 U/L (23-300)
--- NOTE | 2023-11-14 18:55 | CT ---
EXAMINATION TYPE: CT abdomen pelvis w con CT DLP: 1241.8 mGycm, Automated exposure control for dose reduction was used. DATE OF EXAM: 11/14/2023 6:04 PM COMPARISON: None. CLINICAL INDICATION:Female, 73 years old with history of abdominal pain, acute, nonlocalized; abdomin al pain TECHNIQUE: Axial CT of the abdomen and pelvis. Sagittal and coronal reformats were created on a [employer] workstation. Contrast used:100 ml mL of Isovue 300 with IV Contrast, (none if empty) Oral contrast used: without Oral Contrast (none if empty) FINDINGS: LOWER CHEST: Mild bibasilar scarring and/or subsegmental atelectasis. Moderate-sized hiatal hernia. ABDOMEN LIVER: Unremarkable GALLBLADDER AND BILE DUCTS: Status post cholecystectomy. Dilated intrahepatic and extrahepatic biliar y tree, could be related to the post-cholecystectomy status and/or dilated bowel. PANCREAS: Fatty atrophy without acute finding. SPLEEN: Unremarkable. ADRENAL GLANDS: Unremarkable. KIDNEYS AND URETERS: Bilateral renal cysts are present. No visualized calculus or hydroureteronephros is. PELVIS Limited evaluation of the pelvis due to artifact from left hip prosthesis. BLADDER: Unremarkable REPRODUCTIVE: Organs not seen. ABDOMEN & PELVIS STOMACH AND BOWEL: Postoperative changes of the stomach. There are multiple fluid-filled dilated loop s of small bowel as well as a prominent dilated fecalized loop of bowel in the mid to lower abdomen n ear the midline which measures up to 10.2 cm transverse. Suspected transition point adjacent to this. The colon has mild scattered stool throughout. No evidence of appendicitis. PERITONEUM/RETROPERITONEUM: No evidence of pneumoperitoneum or free fluid. VASCULATURE: Mild atherosclerotic calcifications are present throughout the abdominal aorta and its b ranches. No evidence of aortic aneurysm. Portal veins are enhancing. Splenic vein and mesenteric ve ins are enhancing. LYMPH NODES: No enlarged nodes by CT size criteria. SOFT TISSUE/ABDOMINAL WALL: Unremarkable MUSCULOSKELETAL: Left hip arthroplasty in place. Postoperative changes with posterior fusion hardware at the L5-S1 level. Moderate multilevel degenerative disc disease throughout the visualized spine. T here is grade 1 anterolisthesis L4 on L5 which appears degenerative. Moderate canal and neural forami nal stenoses at this level. IMPRESSION: Small bowel obstruction with suspected transition point in the mid to lower abdomen. [facility], , 11/14/2023 6:52 PM
[2023-11-14] MEDS ORDERED: NALOXONE 0.4 MG/ML 1 ML VIAL IV PRN (19:10)
[2023-11-14] MEDS ORDERED: METOCLOPRAMIDE 5 MG/ML 2 ML VIAL IVP PRN (19:11)
[2023-11-14] MEDS: FAMOTIDINE 20 MG TAB PO SCH (20:34)
[2023-11-14] MEDS: CITALOPRAM HYDROBROMIDE 20 MG TAB PO SCH (20:34)
[2023-11-14] MEDS: ATORVASTATIN 20 MG TAB PO SCH (20:34)
[2023-11-14] MEDS: GABAPENTIN 100 MG CAP PO SCH (20:34)
[2023-11-14] MEDS: PIPERACILLIN-TAZOBACTAM 3.375 GM in SODIUM CHLORIDE 0.9% 100 ML IVPB STA (20:35)
[2023-11-14] MEDS: SODIUM CHLORIDE 0.9% 1,000 ML IV SCH (20:41)
--- NOTE | 2023-11-14 20:42 | P.HPIM ---
History of Present Illness H&P Date: 11/14/23 Chief Complaint: Abdominal pain/nausea/vomiting/diarrhea 73-year-old female, history of hyperlipidemia, osteoarthritis, who presents to the emergency department for abdominal pain. States that it started this morning. Pain is largely in the upper abdomen. She has associated nausea and vomiting. She was given oral Zofran by EMS without any relief in symptoms. Reports mild diarrhea. Denies any fever/chills or sick contacts. Blood work completed in ED reveals a WBC of 11.8, hemoglobin of 13.8 and platelet count of 212, sodium 137, potassium 4.2, BUNs/creatinine of 20/0.56 and blood glucose of 170, lactic acid of 2.1, amylase elevated at 1628, lipase elevated at 15,828, troponin less than 0.012, AST mildly elevated at 40 CT of the abdomen completed reveals small bowel obstruction with suspected transition point in mid to lower abdomen -EKG: Sinus rhythm. Ventricular rate 67 bpm, NM interval 211 ms, QRS duration 105 ms, QTc 433 ms Review of Systems REVIEW OF SYSTEMS: CONSTITUTIONAL: No fever, no malaise, no fatigue. HEENT: No recent visual problems or hearing problems. Denied any sore throat. CARDIOVASCULAR: No chest pain, orthopnea, PND, no palpitations, no syncope. PULMONARY: No shortness of breath, no cough, no hemoptysis. GASTROINTESTINAL: No diarrhea, no nausea, no vomiting, no abdominal pain. NEUROLOGICAL: No headaches, no weakness, no numbness. HEMATOLOGICAL: Denies any bleeding or petechiae. GENITOURINARY: Denies any burning micturition, frequency, or urgency. MUSCULOSKELETAL/RHEUMATOLOGICAL: Denies any joint pain, swelling, or any muscle pain. ENDOCRINE: Denies any polyuria or polydipsia. The rest of the 14-point review of systems is negative. Past Medical History Past Medical History: GERD/Reflux, Hyperlipidemia, Musculoskeletal Disorder, Osteoarthritis (OA) Additional Past Medical History / Comment(s): Vertigo, DDD, gastric bypass. History of Any Multi-Drug Resistant Organisms: None Reported Past Surgical History: Back Surgery, Bariatric Surgery, Cholecystectomy, Hyster ectomy, Joint Replacement, Orthopedic Surgery Additional Past Surgical History / Comment(s): Fusion of neck and back, bilateral shoulder arthroscopy, right ankle fusion, surgery for gastric reflux, right reverse shoulder, bilateral knee replacements, left hip replacement. Past Anesthesia/Blood Transfusion Reactions: Previous Problems w/ Anesthesia Additional Past Anesthesia/Blood Transfusion Reaction / Comment(s): Difficulty coming out of anesthesia. Past Psychological History: Depression Smoking Status: Former smoker Past Alcohol Use History: Rare Past Drug Use History: None Reported - Past Family History Mother Family Medical History: Cancer Father Family Medical History: Cancer Son(s) Family Medical History: Deep Vein Thrombosis (DVT) Medications and Allergies Home Medications Medication Instructions Recorded Confirmed Type Celecoxib [CeleBREX] 200 mg PO BID 04/17/16 11/14/23 History Citalopram Hydrobromide 20 mg PO HS 04/17/16 11/14/23 History [Citalopram HBr] Ferrous Sulfate [Feosol] 325 mg PO DAILY 04/17/16 11/14/23 History Multivitamins, Thera [Multivitamin] 1 tab PO DAILY 04/17/16 11/14/23 History Simvastatin [Zocor] 40 mg PO HS 04/17/16 11/14/23 History Famotidine [Pepcid] 40 mg PO HS 03/07/20 11/14/23 History Ascorbic Acid [Vitamin C] 1,000 mg PO DAILY 11/14/23 11/14/23 History Cholecalciferol [Vitamin D3 (25 25 mcg PO DAILY 11/14/23 11/14/23 History Mcg = 1000 Iu)] Cyanocobalamin (Vitamin B-12) 1,000 mcg PO DAILY 11/14/23 11/14/23 History [Vitamin B-12] Gabapentin [Neurontin] 100 mg PO BID 11/14/23 11/14/23 History HYDROcodone/APAP 7.5-325MG [[place] 1 tab PO BID PRN 11/14/23 11/14/23 History 7.5-325] Omeprazole 40 mg PO DAILY 11/14/23 11/14/23 History Solifenacin Succinate [Vesicare] 5 mg PO DAILY 11/14/23 11/14/23 History Zinc Sulfate 50 mg PO DAILY 11/14/23 11/14/23 History Allergies Allergy/AdvReac Type Severity Reaction Status Date / Time No Known Allergies Allergy Verified 11/14/23 19:22 Physical Exam Vitals: Vital Signs Temp Pulse Resp BP Pulse Ox 11/14/23 18:20 98.5 F 83 126/71 98 09/28/24 17:30 75 146/82 85 L 11/14/23 16:30 162/87 100 11/14/23 16:23 98.1 F 66 17 162/87 100 Intake and Output 11/14/23 11/14/23 11/14/23 06:59 14:59 22:59 Other: Weight 89.358 kg General appearance: alert, in distress Head exam: Present: atraumatic, normocephalic, normal inspection Respiratory exam: Present: normal lung sounds bilaterally. Absent: respiratory distress, wheezes, rales, rhonchi, stridor Cardiovascular Exam: Present: regular rate, normal rhythm, normal heart sounds. Absent: systolic murmur, diastolic murmur, rubs, gallop, clicks GI/Abdominal exam: Present: soft, tenderness (Upper abdomen), normal bowel sounds. Absent: distended Neurological exam: Present: alert, oriented X3, CN II-XII intact Psychiatric exam: Present: normal affect, normal mood Skin exam: Present: warm, dry, intact, normal color. Absent: rash Results CBC & Chem 7: 11/14/23 17:07 11/14/23 17:07 Labs: Abnormal Lab Results - Last 24 Hours (Table) 11/14/23 11/14/23 11/14/23 Range/Units 17:07 17:07 17:07 WBC 11.8 H (3.8-10.6) k/uL Neutrophils # 10.5 H (1.3-7.7) k/uL Lymphocytes # 0.8 L (1.0-4.8) k/uL BUN 24 H (7-17) mg/dL Glucose 170 H (74-99) mg/dL Plasma Lactic Acid Hugo 2.1 H* (0.7-2.0) mmol/L AST 40 H (14-36) U/L Amylase 1628 H* (30-110) U/L Lipase 55942 H (23-300) U/L Assessment and Plan Assessment: 1. Acute pancreatitis; patient is status postcholecystectomy -We will plan to keep patient n.p.o.; IV fluids in form of normal saline at a rate of 75 cc an hour -Pain control with IV morphine -We will monitor amylase, lipase and liver enzymes -Consult general surgery 2. Intractable nausea and vomiting/small bowel obstruction -Patient is currently n.p.o.; will do serial abdominal exams/imaging with plans to insert an NG tube if abdominal distention worsens -IV fluids; monitor and supplement electrolytes closely -General Surgery consulted 3. Hyperlipidemia; patient takes simvastatin which is placed on hold 4. Osteoarthritis; takes Celebrex; hold 5. Depression/anxiety; Celexa 20 mg nightly DVT prophylaxis; SCDs/subcu heparin CODE STATUS; full code
[2023-11-14] MEDS: HEPARIN SODIUM,PORCINE 5,000 UNIT/ML 1 ML VIAL SQ SCH (22:30)
[2023-11-15] MEDS: PIPERACILLIN-TAZOBACTAM 3.375 GM in SODIUM CHLORIDE 0.9% 100 ML IVPB SCH (02:02)
[2023-11-15] MEDS: ONDANSETRON 4 MG/2 ML VIAL IVP PRN (04:17)
[2023-11-15 05:39] LABS: Appearance,Urine Clear (Clear); Bacteria,Urine Rare /hpf; Bilirubin,Urine Negative (Negative); Blood,Urine Small (Negative); Color,Urine Yellow; Glucose,Urine (UA) Negative (Negative); Ketones,Urine Negative (Negative); Leukocyte Esterase,Urine Small (Negative); Mucus,Urine Rare /hpf; Nitrite,Urine Positive (Negative); Protein,Urine Trace (Negative); RBC,Urine 10 /hpf (0-5); Squamous Epithelial Cell,Urine 1 /hpf (0-4); Urobilinogen,Urine <2.0 mg/dL (<2.0); WBC,Urine 8 /hpf (0-5)
[2023-11-15 05:41] LABS: Specific Gravity,Urine >1.050 (1.001-1.035)
[2023-11-15] MEDS: HYDROmorphone 0.5 MG/0.5 ML SYRINGE IVP PRN (08:48)
[2023-11-15] MEDS ORDERED: PANTOPRAZOLE 40 MG/10 ML VIAL IV SCH (09:00)
[2023-11-15] MEDS: CHOLECALCIFEROL 25 MCG (1000 IU) TABLET PO SCH (09:01)
[2023-11-15] MEDS: ASCORBIC ACID 500 MG TAB PO SCH (09:01)
[2023-11-15] MEDS: ZINC SULFATE 220 MG CAP PO SCH (09:01)
[2023-11-15] MEDS: CYANOCOBALAMIN 500 MCG TAB PO SCH (09:01)
[2023-11-15] MEDS: FERROUS SULFATE 325 MG TAB PO SCH (09:01)
[2023-11-15] MEDS: MULTIVITAMINS, THERA 1 EACH TAB PO SCH (09:02)
[2023-11-15] MEDS: PANTOPRAZOLE 40 MG TABLET PO SCH (09:02)
[2023-11-15] MEDS: MELOXICAM 7.5 MG TAB PO SCH (09:02)
[2023-11-15 09:14] LABS: Basophils # (A) 0.03 X 10*3/uL (0.00-0.10); Basophils % (A) 0.2 %; Eosinophils # (A) 0 X 10*3/uL (0.04-0.35); Eosinophils % (A) 0 %; HCT 38.7 % (37.2-46.3); HGB 12.5 g/dL (12.0-15.0); Lymphocytes # (A) 1.05 X 10*3/uL (0.90-5.00); Lymphocytes % (A) 8.4 %; MCH 30.9 pg (27.0-32.0); MCHC 32.3 g/dL (32.0-37.0); MCV 95.6 FL (80.0-97.0); Mean Platelet Volume 11.9 FL (9.5-12.2); Monocytes # (A) 1.04 X 10*3/uL (0.20-1.00); Monocytes % (A) 8.3 %; NRBC Per 100 WBC 0 X 10*3/uL (0.00-0.01); Neutrophils # (A) 10.37 X 10*3/uL (1.80-7.70); Neutrophils % (A) 82.8 %; Platelet Count 188 X 10*3/uL (140-440); RBC 4.05 X 10*6/uL (4.10-5.20); RDW 13.2 % (11.5-14.5); WBC 12.53 X 10*3/uL (4.50-10.00)
--- NOTE | 2023-11-15 09:25 | P.GSCN ---
History of Present Illness Consult date: 11/15/23 Reason for Consult: B small bowel obstruction History of present illness: This a 73-year-old female who is well-known to myself. Patient presented to the emergency room complaints abdominal pain nausea. Her CAT scan suggestive of small bowel obstruction with a transition point. Patient states her pain is better this morning. She still has some complaints of nausea. Past Medical History Past Medical History: GERD/Reflux, Hyperlipidemia, Musculoskeletal Disorder, Osteoarthritis (OA) Additional Past Medical History / Comment(s): Vertigo, DDD, gastric bypass. History of Any Multi-Drug Resistant Organisms: None Reported Past Surgical History: Back Surgery, Bariatric Surgery, Cholecystectomy, Hysterectomy, Joint Replacement, Orthopedic Surgery Additional Past Surgical History / Comment(s): Fusion of neck and back, bilateral shoulder arthroscopy, right ankle fusion, surgery for gastric reflux, right reverse shoulder, bilateral knee replacements, left hip replacement. Past Anesthesia/Blood Transfusion Reactions: Previous Problems w/ Anesthesia Additional Past Anesthesia/Blood Transfusion Reaction / Comm: Difficulty coming out of anesthesia. Past Psychological History: Depression Smoking Status: Former smoker Past Alcohol Use History: Rare Additional Past Alcohol Use History / Comment(s): Smoked 20-30 years, 2 ppd, quit 24 years ago. Past Drug Use History: None Reported - Past Family History Mother Family Medical History: Cancer Father Family Medical History: Cancer Son(s) Family Medical History: Deep Vein Thrombosis (DVT) Medications and Allergies Home Medications Medication Instructions Recorded Confirmed Type Celecoxib [CeleBREX] 200 mg PO BID 04/17/16 11/14/23 History Citalopram Hydrobromide 20 mg PO HS 04/17/16 11/14/23 History [Citalopram HBr] Ferrous Sulfate [Feosol] 325 mg PO DAILY 04/17/16 11/14/23 History Multivitamins, Thera [Multivitamin] 1 tab PO DAILY 04/17/16 11/14/23 History Simvastatin [Zocor] 40 mg PO HS 04/17/16 11/14/23 History Famotidine [Pepcid] 40 mg PO HS 03/07/20 11/14/23 History Ascorbic Acid [Vitamin C] 1,000 mg PO DAILY 11/14/23 11/14/23 History Cholecalciferol [Vitamin D3 (25 25 mcg PO DAILY 11/14/23 11/14/23 History Mcg = 1000 Iu)] Cyanocobalamin (Vitamin B-12) 1,000 mcg PO DAILY 11/14/23 11/14/23 History [Vitamin B-12] Gabapentin [Neurontin] 100 mg PO BID 11/14/23 11/14/23 History HYDROcodone/APAP 7.5-325MG [[place] 1 tab PO BID PRN 11/14/23 11/14/23 History 7.5-325] Omeprazole 40 mg PO DAILY 11/14/23 11/14/23 History Solifenacin Succinate [Vesicare] 5 mg PO DAILY 11/14/23 11/14/23 History Zinc Sulfate 50 mg PO DAILY 11/14/23 11/14/23 History Allergies Allergy/AdvReac Type Severity Reaction Status Date / Time No Known Allergies Allergy Verified 11/14/23 19:22 Surgical - Exam Vital Signs Temp Pulse Resp BP Pulse Ox 98.1 F 66 17 162/87 100 11/14/23 16:23 11/14/23 16:23 11/14/23 16:23 11/14/23 16:23 11/14/23 16:23 - General well developed, well nourished - Eyes PERRL - ENT normal pinna - Neck no masses - Respiratory normal expansion - Cardiovascular Rhythm: regular - Abdomen Minimally tender throughout Abdomen: soft Results - Labs 11/15/23 05:43 11/14/23 17:07 Abnormal Lab Results - Last 24 Hours (Table) 11/14/23 11/14/23 11/14/23 Range/Units 17:07 17:07 17:07 WBC 11.8 H (3.8-10.6) k/uL RBC (4.10-5.20) X 10*6/uL Neutrophils # 10.5 H (1.3-7.7) k/uL Lymphocytes # 0.8 L (1.0-4.8) k/uL Monocytes # (0.20-1.00) X 10*3/uL Eosinophils # (0.04-0.35) X 10*3/uL BUN 24 H (7-17) mg/dL Glucose 170 H (74-99) mg/dL Plasma Lactic Acid Hugo 2.1 H* (0.7-2.0) mmol/L AST 40 H (14-36) U/L Amylase 1628 H* (30-110) U/L Lipase 08289 H (23-300) U/L Ur Specific [place] (1.001-1.035) Urine Protein (Negative) Urine Blood (Negative) Urine Nitrite (Negative) Ur Leukocyte Esterase (Negative) Urine RBC (0-5) /hpf Urine WBC (0-5) /hpf Urine Bacteria (None) /hpf Urine Mucus (None) /hpf 11/15/23 11/15/23 Range/Units 04:21 05:43 WBC 12.53 H (3.8-10.6) k/uL RBC 4.05 L (4.10-5.20) X 10*6/uL Neutrophils # 10.37 H (1.3-7.7) k/uL Lymphocytes # (1.0-4.8) k/uL Monocytes # 1.04 H (0.20-1.00) X 10*3/uL Eosinophils # 0 L (0.04-0.35) X 10*3/uL BUN (7-17) mg/dL Glucose (74-99) mg/dL Plasma Lactic Acid Hugo (0.7-2.0) mmol/L AST (14-36) U/L Amylase (30-110) U/L Lipase (23-300) U/L Ur Specific [place] >1.050 H (1.001-1.035) Urine Protein Trace H (Negative) Urine Blood Small H (Negative) Urine Nitrite Positive H (Negative) Ur Leukocyte Esterase Small H (Negative) Urine RBC 10 H (0-5) /hpf Urine WBC 8 H (0-5) /hpf Urine Bacteria Rare H (None) /hpf Urine Mucus Rare H (None) /hpf Diabetes panel 11/14/23 Range/Units 17:07 Sodium 137 (137-145) mmol/L Potassium 4.2 (3.5-5.1) mmol/L Chloride 104 (98-107) mmol/L Carbon Dioxide 23 (22-30) mmol/L BUN 24 H (7-17) mg/dL Creatinine 0.56 (0.52-1.04) mg/dL Glucose 170 H (74-99) mg/dL Calcium 9.7 (8.4-10.2) mg/dL AST 40 H (14-36) U/L ALT 28 (4-34) U/L Alkaline Phosphatase 96 (38-126) U/L Total Protein 7.0 (6.3-8.2) g/dL Albumin 4.2 (3.5-5.0) g/dL Calcium panel 11/14/23 Range/Units 17:07 Calcium 9.7 (8.4-10.2) mg/dL Albumin 4.2 (3.5-5.0) g/dL Pituitary panel 11/14/23 Range/Units 17:07 Sodium 137 (137-145) mmol/L Potassium 4.2 (3.5-5.1) mmol/L Chloride 104 (98-107) mmol/L Carbon Dioxide 23 (22-30) mmol/L BUN 24 H (7-17) mg/dL Creatinine 0.56 (0.52-1.04) mg/dL Glucose 170 H (74-99) mg/dL Calcium 9.7 (8.4-10.2) mg/dL Adrenal panel 11/14/23 Range/Units 17:07 Sodium 137 (137-145) mmol/L Potassium 4.2 (3.5-5.1) mmol/L Chloride 104 (98-107) mmol/L Carbon Dioxide 23 (22-30) mmol/L BUN 24 H (7-17) mg/dL Creatinine 0.56 (0.52-1.04) mg/dL Glucose 170 H (74-99) mg/dL Calcium 9.7 (8.4-10.2) mg/dL Total Bilirubin 0.7 (0.2-1.3) mg/dL AST 40 H (14-36) U/L ALT 28 (4-34) U/L Alkaline Phosphatase 96 (38-126) U/L Total Protein 7.0 (6.3-8.2) g/dL Albumin 4.2 (3.5-5.0) g/dL Assessment and Plan Assessment: Small obstruction. Patient will have a repeat CT scan with oral contrast. If she has a significant obstruction nasogastric will be placed.
[2023-11-15 09:34] LABS: Chol/HDL Ratio 2.13 Ratio; LDL Cholesterol,Calculated 53.8 mg/dL (0.0-131.0)
[2023-11-15] MEDS: TROSPIUM CHLORIDE 20 MG TABLET PO SCH (10:09)
[2023-11-15] MEDS: IOPAMIDOL CONTRAST (ORAL USE) VIAL PO PRN (10:27)
[2023-11-15 11:57] LABS: ALT 22 U/L (8-44); AST 28 U/L (13-35); Albumin 3.8 g/dL (3.8-4.9); Albumin/Globulin Ratio 1.65 Ratio (1.60-3.17); Alkaline Phosphatase 90 U/L (41-126); Blood Urea Nitrogen 25.2 mg/dL (9.0-27.0); Calcium 8.6 mg/dL (8.7-10.3); Carbon Dioxide 22.3 mmol/L (21.6-31.8); Chloride 105 mmol/L (96-109); Globulin 2.3 g/dL (1.6-3.3); Glucose 108 mg/dL (70-110); Potassium 4.2 mmol/L (3.5-5.5); Sodium 139 mmol/L (135-145); Total Bilirubin 0.4 mg/dL (0.3-1.2); Total Protein 6.1 g/dL (6.2-8.2)
[2023-11-15 12:21] LABS: Lipase 1393 U/L (14-63)
[2023-11-15 12:28] LABS: Amylase 813 U/L (23-121)
--- NOTE | 2023-11-15 12:31 | CT ---
EXAMINATION TYPE: CT abdomen pelvis wo con DATE OF EXAM: 11/15/2023 HISTORY: ABD PAIN, small bowel obstruction CT DLP: 816.7 mGycm. Automated Exposure Control for Dose Reduction was Utilized. TECHNIQUE: CT scan of the abdomen and pelvis is performed without oral or IV contrast. COMPARISON: 11/14/2023 FINDINGS: Within the limitations of a non-contrast study, the following observations are made. The lung bases are clear. There are postsurgical changes at the GE junction. There is a markedly dila aristeo distal esophagus and a small postsurgical stomach. There is surgical absence of the gallbladder. There is no biliary ductal dilatation. There is no organomegaly involving the liver, pancreas, spleen or adrenal glands. There are no renal calcifications or hydronephrosis. There is a partial proximal small bowel obstruction secondary to what appears to be twisted small bow el loop in the upper mid abdomen. This either secondary to small bowel volvulus or internal small bow el hernia. The trapped bowel is markedly dilated measuring approximately 10 cm and has contrast and p articulate matter within it. It is a partial obstruction as contrast is seen in the small bowel dista lly. There is no contrast within the colon. There is no pelvic mass, free fluid, abscess or adenopathy. The osseous structures are intact. IMPRESSION: 1. 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 2. Post surgical changes at the GE junction as described above. [facility], , 11/15/2023 12:29 PM
--- NOTE | 2023-11-15 12:36 | P.PN ---
Subjective Progress Note Date: 11/15/23 73-year-old female, history of hyperlipidemia, osteoarthritis, who presents to the emergency department for abdominal pain. States that it started this morning. Pain is largely in the upper abdomen. She has associated nausea and vomiting. She was given oral Zofran by EMS without any relief in symptoms. Reports mild diarrhea. Denies any fever/chills or sick contacts. Blood work completed in ED reveals a WBC of 11.8, hemoglobin of 13.8 and platelet count of 212, sodium 137, potassium 4.2, BUNs/creatinine of 20/0.56 and blood glucose of 170, lactic acid of 2.1, amylase elevated at 1628, lipase el evated at 15,828, troponin less than 0.012, AST mildly elevated at 40 CT of the abdomen completed reveals small bowel obstruction with suspected transition point in mid to lower abdomen -EKG: Sinus rhythm. Ventricular rate 67 bpm, AK interval 211 ms, QRS duration 105 ms, QTc 433 ms --Admitted for acute pancreatitis, UTI and small bowel obstruction Labs are stable this morning with WBC of 12.3, hemoglobin of 12.5 and platelet count of 188, sodium 139, potassium 4.2, BUNs/creatinine of 25.2/0.7, amylase is down to 813 from's 1628 yesterday with lipase trending down to 1393 from 15,882 yesterday -Patient has been evaluated by general surgery for small bowel obstruction; recommending repeat CT of the abdomen with oral contrast Objective - Vital Signs Vital signs: Vital Signs Temp 98.5 F 11/14/23 18:20 Pulse 74 11/15/23 06:49 Resp 18 11/15/23 06:49 BP 137/73 11/15/23 06:49 Pulse Ox 96 11/15/23 06:49 FiO2 Intake & Output 11/14/23 11/15/23 11/15/23 18:59 06:59 18:59 Weight 89.358 kg - Exam General appearance: alert, in distress Head exam: Present: atraumatic, normocephalic, normal inspection Respiratory exam: Present: normal lung sounds bilaterally. Absent: respiratory distress, wheezes, rales, rhonchi, stridor Cardiovascular Exam: Present: regular rate, normal rhythm, normal heart sounds. Absent: systolic murmur, diastolic murmur, rubs, gallop, clicks GI/Abdominal exam: Present: soft, tenderness (Upper abdomen), normal bowel sounds. Absent: distended Neurological exam: Present: alert, oriented X3, CN II-XII intact Psychiatric exam: Present: normal affect, normal mood Skin exam: Present: warm, dry, intact, normal color. Absent: rash - Labs CBC & Chem 7: 11/15/23 05:43 11/15/23 05:43 Labs: Abnormal Lab Results - Last 24 Hours (Table) 11/14/23 11/14/23 11/14/23 Range/Units 17:07 17:07 17:07 WBC 11.8 H (3.8-10.6) k/uL Neutrophils # 10.5 H (1.3-7.7) k/uL Lymphocytes # 0.8 L (1.0-4.8) k/uL BUN 24 H (7-17) mg/dL Glucose 170 H (74-99) mg/dL Plasma Lactic Acid Hugo 2.1 H* (0.7-2.0) mmol/L AST 40 H (14-36) U/L Amylase 1628 H* (30-110) U/L Lipase 14261 H (23-300) U/L Ur Specific [place] (1.001-1.035) Urine Protein (Negative) Urine Blood (Negative) Urine Nitrite (Negative) Ur Leukocyte Esterase (Negative) Urine RBC (0-5) /hpf Urine WBC (0-5) /hpf Urine Bacteria (None) /hpf Urine Mucus (None) /hpf 11/15/23 Range/Units 04:21 WBC (3.8-10.6) k/uL Neutrophils # (1.3-7.7) k/uL Lymphocytes # (1.0-4.8) k/uL BUN (7-17) mg/dL Glucose (74-99) mg/dL Plasma Lactic Acid [place] (0.7-2.0) mmol/L AST (14-36) U/L Amylase (30-110) U/L Lipase (23-300) U/L Ur Specific [place] >1.050 H (1.001-1.035) Urine Protein Trace H (Negative) Urine Blood Small H (Negative) Urine Nitrite Positive H (Negative) Ur Leukocyte Esterase Small H (Negative) Urine RBC 10 H (0-5) /hpf Urine WBC 8 H (0-5) /hpf Urine Bacteria Rare H (None) /hpf Urine Mucus Rare H (None) /hpf Assessment and Plan Assessment: 1. Acute pancreatitis; patient is status postcholecystectomy -We will plan to keep patient n.p.o.; IV fluids in form of normal saline at a rate of 75 cc an hour -Pain control with IV morphine -We will monitor amylase, lipase and liver enzymes -Consult general surgery 2. Intractable nausea and vomiting/small bowel obstruction -Patient is currently n.p.o.; will do serial abdominal exams/imaging with plans to insert an NG tube if abdominal distention worsens -IV fluids; monitor and supplement electrolytes closely -General Surgery consulted 3. Hyperlipidemia; patient takes simvastatin which is placed on hold 4. Osteoarthritis; takes Celebrex; hold 5. Depression/anxiety; Celexa 20 mg nightly DVT prophylaxis; SCDs/subcu heparin CODE STATUS; full code
[2023-11-16 10:20] LABS: Prothrombin Time 10.7 sec (10.0-12.5)
--- NOTE | 2023-11-16 15:17 | P.PN ---
Subjective Progress Note Date: 11/16/23 CHIEF COMPLAINT: Small bowel obstruction HISTORY OF PRESENT ILLNESS: Patient reports her pain is a little less today. She denies any nausea or vomiting. Denies any flatus denies any bowel movement. 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 Afebrile. WBC 12.53 lactic acid 2.1 down to 1.8 PHYSICAL EXAM: VITAL SIGNS: Reviewed. GENERAL: Well-developed in no acute distress. HEENT: No sclera icterus. Extraocular movements grossly intact. Moist buccal mucosa. Head is atraumatic, normocephalic. ABDOMEN: Soft. Nondistended. Mild epigastric tenderness NEUROLOGIC: Alert and oriented. Cranial nerves II through XII grossly intact. ASSESSMENT: 1. Small bowel obstruction with CT scan reporting proximal partial small bowel obstruction secondary to entrapped markedly dilated loop of bowel likely due to an internal mesenteric herniation PLAN: -Patient scheduled for exploratory laparotomy with possible small bowel resection today with Dr. Silva -Keep patient n.p.o. -Continue IV fluids -Continue antibiotics Physician Straightening Machine Feeder note has been reviewed by physician. Signing provider agrees with the documented findings, assessment, and plan of care. Objective - Vital Signs Vital signs: Vital Signs Temp 98.2 F 11/16/23 13:39 Pulse 66 11/16/23 13:39 Resp 17 11/16/23 13:39 BP 107/67 11/16/23 13:39 Pulse Ox 99 11/16/23 13:39 FiO2 Intake & Output 11/15/23 11/16/23 11/16/23 18:59 06:59 18:59 Weight 89.358 kg Other: Voiding Method Toilet Toilet # Voids 3 2 1 - Labs CBC & Chem 7: 11/15/23 05:43 11/15/23 05:43 Labs: Microbiology - Last 24 Hours (Table) 11/14/23 21:47 Blood Culture - Preliminary Blood
[2023-11-16 15:34] LABS: Basophils % (A) 0 %; Eosinophils % (A) 1 %; HCT 34.7 % (34.0-46.0); HGB 10.9 gm/dL (11.4-16.0); Hypochromasia Slight; Lymphocytes # (A) 0.9 k/uL (1.0-4.8); Lymphocytes % (A) 19 %; MCH 30.3 pg (25.0-35.0); MCHC 31.5 g/dL (31.0-37.0); MCV 96.3 fL (80.0-100.0); Mean Platelet Volume 9.7; Monocytes # (A) 0.4 k/uL (0-1.0); Monocytes % (A) 9 %; Neutrophils # (A) 3.3 k/uL (1.3-7.7); Neutrophils % (A) 69 %; Platelet Count 131 k/uL (150-450); RDW 13.5 % (11.5-15.5); WBC 4.9 k/uL (3.8-10.6)
[2023-11-16 15:41] LABS: African American GFR (CKD) >90 (>60 ml/min/1.73 sqM); Anion Gap 1 mmol/L; Blood Urea Nitrogen 21 mg/dL (7-17); Calcium 8.6 mg/dL (8.4-10.2); Carbon Dioxide 25 mmol/L (22-30); Chloride 111 mmol/L (98-107); Glucose 78 mg/dL (74-99); Non-African American GFR(CKD) >90 (>60 ml/min/1.73 sqM); Potassium 3.6 mmol/L (3.5-5.1); Sodium 137 mmol/L (137-145)
[2023-11-16] MEDS: IV FLUID CONTINUATION 1,000 ML IV ONE ×2 (16:57→17:45)
[2023-11-16] MEDS: DEXAMETHASONE SOD PHOSPHATE 4 MG/ML 1 ML VIAL IVP STA (17:32)
[2023-11-16] MEDS: HEPARIN SODIUM,PORCINE 5,000 UNIT/ML 1 ML VIAL SQ STA (17:36)
[2023-11-16] MEDS ORDERED: LIDOCAINE 1% INJ 10MG/ML (20 ML MDV) ONE (18:02)
[2023-11-16] MEDS ORDERED: PROPOFOL 10 MG/ML 20 ML VIAL IV ONE (18:02)
[2023-11-16] MEDS ORDERED: ROCURONIUM 10 MG/ML (5 ML VIAL) IV ONE (18:02)
[2023-11-16] MEDS ORDERED: SUCCINYLCHOLINE CHLORIDE 200 MG/10 ML VIAL IV ONE (18:02)
[2023-11-16] MEDS ORDERED: NEOSTIGMINE 1 MG/ML 10 ML VIAL ONE (18:02)
[2023-11-16] MEDS ORDERED: ePHEDrine 50 MG/ML 1 ML VIAL ONE (18:02)
[2023-11-16] MEDS ORDERED: fentaNYL (PF) 50 MCG/ML 2 ML AMP ONE (18:02)
[2023-11-16] MEDS ORDERED: GLYCOPYRROLATE 0.2 MG/ML 2 ML VIAL ONE (18:02)
[2023-11-16] MEDS ORDERED: METOCLOPRAMIDE 5 MG/ML 2 ML VIAL IVP PRN (19:56)
[2023-11-16] MEDS ORDERED: ONDANSETRON 4 MG/2 ML VIAL IVP PRN (19:56)
[2023-11-16] MEDS ORDERED: NALOXONE 0.4 MG/ML 1 ML VIAL IV PRN (19:56)
--- NOTE | 2023-11-16 19:56 | P.OP ---
Date of Procedure: 11/16/23 Preoperative Diagnosis: Small bowel obstruction Postoperative Diagnosis: small bowel obstruction Procedure(s) Performed: Lysis of extensive adhesions Small bowel resection x 2 with anastomosis Anesthesia: CATEA Surgeon: Escobar Silva Estimated Blood Loss (ml): 50 Pathology: other (Small bowel) Condition: stable Disposition: PACU
[2023-11-16] MEDS: LACTATED RINGERS 1,000 ML IV SCH (20:40)
[2023-11-16] MEDS: HYDROcodone/APAP 7.5-325MG 1 EACH TAB PO PRN (21:57)
[2023-11-16] MEDS: HYDROmorphone 1 MG/ML 1 ML SYRINGE IVP PRN (23:28)
--- NOTE | 2023-11-17 04:26 | P.PN ---
Subjective Progress Note Date: 11/16/23 73-year-old female, history of hyperlipidemia, osteoarthritis, who presents to the emergency department for abdominal pain. States that it started this morning. Pain is largely in the upper abdomen. She has associated nausea and vomiting. She was given oral Zofran by EMS without any relief in symptoms. Reports mild diarrhea. Denies any fever/chills or sick contacts. Blood work completed in ED reveals a WBC of 11.8, hemoglobin of 13.8 and platelet count of 212, sodium 137, potassium 4.2, BUNs/creatinine of 20/0.56 and blood glucose of 170, lactic acid of 2.1, amylase elevated at 1628, lipase elevated at 15,828, troponin less than 0.012, AST mildly elevated at 40 CT of the abdomen completed reveals small bowel obstruction with suspected transition point in mid to lower abdomen -EKG: Sinus rhythm. Ventricular rate 67 bpm, [place] interval 211 ms, QRS duration 105 ms, QTc 433 ms --Admitted for acute pancreatitis, UTI and small bowel obstruction Labs are stable this morning with WBC of 12.3, hemoglobin of 12.5 and platelet count of 188, sodium 139, potassium 4.2, BUNs/creatinine of 25.2/0.7, amylase is down to 813 from's 1628 yesterday with lipase trending down to 1393 from 15,882 yesterday -Patient has been evaluated by general surgery for small bowel obstruction; recommending repeat CT of the abdomen with oral contrast 11/16/2023 Patient is seen and evaluated in follow-up today currently n.p.o. 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 Patient initially reported she was not passing any gas and has not had a bowel movement. After later discussion in the afternoon patient reports she did have a very small amount of flatus noted. Patient clinically looks well and reports to feeling improved today. Will await surgical report. Review of systems: Constitutional: No reports of fatigue, fever, or chills Cardiovascular: No reports of chest pain or palpitations Respiratory: No reports of shortness of breath or cough GI: No reports of nausea, vomiting, or diarrhea, reports flatus : No reports of dysuria or retention Neurovascular: No reports of weakness or numbness All medications have been reviewed Physical exam: Gen: This is a 73-year-old female who is awake, alert and oriented x 3, well- developed, obese HEENT: Head is atraumatic, normocephalic. Pupils equal, round. Sclerae is anict rober. NECK: Supple. No JVD. No lymphadenopathy. No thyromegaly. LUNGS: Clear to auscultation. No wheezes or rhonchi. No intercostal retractions. HEART: Regular rate and rhythm. No murmur. ABDOMEN: Soft. Hypoactive sounds noted. No masses. No tenderness. EXTREMITIES: No pedal edema. No calf tenderness. NEUROLOGICAL: Patient is awake, alert and oriented x3. Cranial nerves 2 through 12 are grossly intact. Assessment: -Acute pancreatitis; patient is status postcholecystectomy, liver enzymes along with amylase and lipase are trending down -Intractable nausea and vomiting/small bowel obstruction, scheduled tentatively for surgical intervention today 11/16/2023, continue n.p.o. until cleared by surgery. -History of hyperlipidemia; patient takes simvastatin which is placed on hold -History of osteoarthritis; takes Celebrex which is on hold -History of depression/anxiety; Celexa 20 mg nightly -GI prophylaxis -DVT prophylaxis; SCDs/subcu heparin -full code Plan: Patient currently n.p.o. with general surgery following and plans on surgical intervention this afternoon. Will await surgical report Patient reports she did have 1 flatus with no bowel movement Encouraged increase activity as tolerated patient reports she has been up and walking frequently Will follow-up with repeat labs Will discuss with general surgery regarding discharge planning The impression and plan of care has been dictated by Larisa Malik, Nurse Practitioner as directed. Dr. Selina MD I have performed a history and examination and MDM of this patient, discussed the same with the dictator, and agree with the dictator's assessment and plan as written ,documented as a scribe. Based on total visit time, I have performed more than 50% of the visit. Objective - Vital Signs Vital signs: Vital Signs Temp 98.7 F 11/16/23 00:24 Pulse 72 11/16/23 00:24 Resp 16 11/16/23 00:24 BP 109/68 11/16/23 00:24 Pulse Ox 98 09/30/24 00:24 FiO2 Intake & Output 11/15/23 11/16/23 11/16/23 18:59 06:59 18:59 Weight 89.358 kg Other: Voiding Method Toilet Toilet # Voids 3 2 - Labs CBC & Chem 7: 11/16/23 09:23 11/16/23 09:23 Labs: Abnormal Lab Results - Last 24 Hours (Table) 11/14/23 11/15/23 Range/Units 21:42 05:43 BUN/Creatinine Ratio 36.00 H (12.00-20.00) Ratio Calcium 8.6 L (8.7-10.3) mg/dL Total Protein 6.1 L (6.2-8.2) g/dL HDL Cholesterol 67.20 H (40.00-60.00) mg/dL Amylase 813 A* (23-121) U/L Lipase 1393 H (14-63) U/L
[2023-11-17] MEDS: PIPERACILLIN-TAZOBACTAM 3.375 GM in SODIUM CHLORIDE 0.9% 100 ML IVPB SCH (06:15)
[2023-11-17 09:04] LABS: ALT 19 U/L (8-44); AST 26 U/L (13-35); Albumin 3.1 g/dL (3.8-4.9); Albumin/Globulin Ratio 1.82 Ratio (1.60-3.17); Alkaline Phosphatase 68 U/L (41-126); BUN/Creat Ratio 34.33 Ratio (12.00-20.00); Blood Urea Nitrogen 20.6 mg/dL (9.0-27.0); Calcium 7.9 mg/dL (8.7-10.3); Carbon Dioxide 19.6 mmol/L (21.6-31.8); Chloride 108 mmol/L (96-109); Globulin 1.7 g/dL (1.6-3.3); Glucose 67 mg/dL (70-110); Potassium 3.8 mmol/L (3.5-5.5); Sodium 140 mmol/L (135-145); Total Bilirubin 0.4 mg/dL (0.3-1.2); Total Protein 4.8 g/dL (6.2-8.2)
[2023-11-17 10:08] LABS: HCT 37.1 % (37.2-46.3); HGB 11.9 g/dL (12.0-15.0); MCHC 32.1 g/dL (32.0-37.0); MCV 96.6 FL (80.0-97.0); Mean Platelet Volume 11.9 FL (9.5-12.2); NRBC Per 100 WBC 0 X 10*3/uL (0.00-0.01); Platelet Count 128 X 10*3/uL (140-440); RBC 3.84 X 10*6/uL (4.10-5.20); RDW 12.8 % (11.5-14.5); WBC 11.27 X 10*3/uL (4.50-10.00)
[2023-11-17 10:09] LABS: Basophils # (A) 0.01 X 10*3/uL (0.00-0.10); Basophils % (A) 0.1 %; Crenated RBC 2+; Eosinophils # (A) 0 X 10*3/uL (0.04-0.35); Eosinophils % (A) 0 %; Lymphocytes # (A) 0.77 X 10*3/uL (0.90-5.00); Lymphocytes % (A) 6.8 %; Monocytes % (A) 6.2 %; Neutrophils # (A) 9.75 X 10*3/uL (1.80-7.70); Neutrophils % (A) 86.5 %
[2023-11-17] MEDS: ENOXAPARIN 40 MG/0.4 ML SYRINGE SQ SCH (11:02)
--- NOTE | 2023-11-17 13:45 | P.PN ---
Subjective Progress Note Date: 11/17/23 CHIEF COMPLAINT: Small bowel obstruction HISTORY OF PRESENT ILLNESS: Patient is postop day #1 status post lysis of extensive adhesions and small bowel resection x 2 with anastomosis. Patient reports her pain is controlled. She does report feeling thirsty. Denies any nausea or vomiting. No bowel activity. Afebrile. WBC 4.9 up to 11.27 PHYSICAL EXAM: VITAL SIGNS: Reviewed. GENERAL: Well-developed in no acute distress. HEENT: No sclera icterus. Extraocular movements grossly intact. Moist buccal mucosa. Head is atraumatic, normocephalic. ABDOMEN: Soft. Nondistended. Mild tenderness at incision site. Incisional dressing with 2 small areas of shadowing NEUROLOGIC: Alert and oriented. Cranial nerves II through XII grossly intact. ASSESSMENT: 1. Small bowel obstruction PLAN: -Keep patient strict n.p.o., No oral Meds -Continue IV fluids -Continue pain management -Encourage patient to ambulate -Incentive spirometer ordered -Continue antibiotics -Patient can have oral mouth swabs -DVT prophylaxis Lovenox and GI prophylaxis Protonix Physician Wastewater Treatment [employer] Instructor note has been reviewed by physician. Signing provider agrees with the documented findings, assessment, and plan of care. Objective - Vital Signs Vital signs: Vital Signs Temp 97.5 F L 11/17/23 08:40 Pulse 82 11/17/23 08:40 Resp 17 11/17/23 08:40 BP 109/63 11/17/23 08:40 Pulse Ox 95 11/17/23 08:40 FiO2 Intake & Output 11/16/23 11/17/23 11/17/23 18:59 06:59 18:59 Intake Total 1650 75 Output Total 1050 Balance 1650 -975 Intake: IV 650 75 Intake, IV Titration 1000 Amount Piperacillin-Tazobactam 3 100 .375 gm In Sodium Chloride 0.9% 100 ml @ 25 mls/hr IVPB Q8H [id number] Rx#: [id number] Sodium Chloride 0.9% 1, 900 000 ml @ 75 mls/hr IV . [id number] Rx#:[id number] Output: Urine 1000 Estimated Blood Loss 50 Other: Voiding Method Indwelling Catheter # Voids 1 - Labs CBC & Chem 7: 11/17/23 02:44 11/17/23 02:44 Labs: Abnormal Lab Results - Last 24 Hours (Table) 11/16/23 11/16/23 11/17/23 Range/Units 09:23 09:23 02:44 WBC 11.27 H (4.50-10.00) X 10*3/uL RBC 3.60 L 3.84 L (3.80-5.40) m/uL Hgb 10.9 L 11.9 L (11.4-16.0) gm/dL Hct 37.1 L (37.2-46.3) % Plt Count 131 L 128 L (150-450) k/uL Neutrophils # 9.75 H (1.80-7.70) X 10*3/uL Lymphocytes # 0.9 L 0.77 L (1.0-4.8) k/uL Eosinophils # 0 L (0.04-0.35) X 10*3/uL Crenated Cell 2+ A Chloride 111 H (98-107) mmol/L Carbon Dioxide (21.6-31.8) mmol/L Anion Gap (4.00-12.00) mmol/L BUN 21 H (7-17) mg/dL BUN/Creatinine Ratio (12.00-20.00) Ratio Glucose (70-110) mg/dL Calcium (8.7-10.3) mg/dL Total Protein (6.2-8.2) g/dL Albumin (3.8-4.9) g/dL 11/17/23 Range/Units 02:44 WBC (4.50-10.00) X 10*3/uL RBC (3.80-5.40) m/uL Hgb (11.4-16.0) gm/dL Hct (37.2-46.3) % Plt Count (150-450) k/uL Neutrophils # (1.80-7.70) X 10*3/uL Lymphocytes # (1.0-4.8) k/uL Eosinophils # (0.04-0.35) X 10*3/uL Crenated Cell Chloride (98-107) mmol/L Carbon Dioxide 19.6 L (21.6-31.8) mmol/L Anion Gap 12.40 H (4.00-12.00) mmol/L BUN (7-17) mg/dL BUN/Creatinine Ratio 34.33 H (12.00-20.00) Ratio Glucose 67 L (70-110) mg/dL Calcium 7.9 L (8.7-10.3) mg/dL Total Protein 4.8 L (6.2-8.2) g/dL Albumin 3.1 L (3.8-4.9) g/dL Microbiology - Last 24 Hours (Table) 11/14/23 21:47 Blood Culture - Preliminary Blood
--- NOTE | 2023-11-18 05:53 | P.PN ---
Subjective Progress Note Date: 11/17/23 73-year-old female, history of hyperlipidemia, osteoarthritis, who presents to the emergency department for abdominal pain. States that it started this morning. Pain is largely in the upper abdomen. She has associated nausea and vomiting. She was given oral Zofran by EMS without any relief in symptoms. Reports mild diarrhea. Denies any fever/chills or sick contacts. Blood work completed in ED reveals a WBC of 11.8, hemoglobin of 13.8 and platelet count of 212, sodium 137, potassium 4.2, BUNs/creatinine of 20/0.56 and blood glucose of 170, lactic acid of 2.1, amylase elevated at 1628, lipase elevated at 15,828, troponin less than 0.012, AST mildly elevated at 40 CT of the abdomen completed reveals small bowel obstruction with suspected transition point in mid to lower abdomen -EKG: Sinus rhythm. Ventricular rate 67 bpm, SD interval 211 ms, QRS duration 105 ms, QTc 433 ms --Admitted for acute pancreatitis, UTI and small bowel obstruction Labs are stable this morning with WBC of 12.3, hemoglobin of 12.5 and platelet count of 188, sodium 139, potassium 4.2, BUNs/creatinine of 25.2/0.7, amylase is down to 813 from's 1628 yesterday with lipase trending down to 1393 from 15,882 yesterday -Patient has been evaluated by general surgery for small bowel obstruction; recommending repeat CT of the abdomen with oral contrast 11/16/2023 Patient is seen and evaluated in follow-up today currently n.p.o. 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 Patient initially reported she was not passing any gas and has not had a bowel movement. After later discussion in the afternoon patient reports she did have a very small amount of flatus noted. Patient clinically looks well and reports to feeling improved today. Will await surgical report. 11/17/2023 Patient is seen in follow-up status post lysis of adhesion with bowel resection with anastomosis x 2 last night. Patient reports has not passed any gas and has not had a bowel movement. Patient is having some abdominal discomfort with breakthrough pain. Awaiting to work with nursing staff for PT to get up and walk. Patient is continued to be n.p.o. at this time per surgery until bowel activity. Patient is afebrile with no reports of chest pain or shortness of breath. Review of systems: Constitutional: No reports of fatigue, fever, or chills Cardiovascular: No reports of chest pain or palpitations Respiratory: No reports of shortness of breath or cough GI: No reports of nausea, vomiting, or diarrhea, reports no flatus and no bowel movement with continued abdominal discomfort : No reports of dysuria or retention Neurovascular: reports of generalized weakness All medications have been reviewed Physical exam: Gen: This is a 73-year-old female who is awake, alert and oriented x 3, well- developed, obese HEENT: Head is atraumatic, normocephalic. Pupils equal, round. Sclerae is anicteric. NECK: Supple. No JVD. No lymphadenopathy. No thyromegaly. LUNGS: Clear to auscultation. No wheezes or rhonchi. No intercostal retractions. HEART: Regular rate and rhythm. No murmur. ABDOMEN: Soft. Hypoactive sounds noted. No masses. Mild tenderness. EXTREMITIES: No pedal edema. No calf tenderness. NEUROLOGICAL: Patient is awake, alert and oriented x3. Cranial nerves 2 through 12 are grossly intact. Assessment: -Acute pancreatitis; patient is status postcholecystectomy, liver enzymes along with amylase and lipase are trending down -Intractable nausea and vomiting/small bowel obstruction, status post lysis of adhesions with bowel resection 11/16/2023, continue n.p.o. until cleared by surgery. -History of hyperlipidemia; patient takes simvastatin which is placed on hold -History of osteoarthritis; takes Celebrex which is on hold -History of depression/anxiety; Celexa 20 mg nightly and will be held for now as patient is strict n.p.o. per surgery -GI prophylaxis -DVT prophylaxis; SCDs/subcu heparin -full code Plan: Patient currently n.p.o. with general surgery following and status post lysis of adhesions with bowel resection anastomosis. Patient is to be strict n.p.o. per surgery until bowel activity Encouraged increase activity as tolerated Will follow-up with repeat labs Prognosis is guarded The impression and plan of care has been dictated by Larisa Malik, Nurse Practitioner as directed. Dr. Obey MD I have performed a history and examination and MDM of this patient, discussed the same with the dictator, and agree with the dictator's assessment and plan as written ,documented as a scribe. Based on total visit time, I have performed more than 50% of the visit. Objective - Vital Signs Vital signs: Vital Signs Temp 97.5 F L 11/17/23 08:40 Pulse 82 11/17/23 08:40 Resp 17 11/17/23 08:40 BP 109/63 11/17/23 08:40 Pulse Ox 95 11/17/23 08:40 FiO2 Intake & Output 11/16/23 11/17/23 11/17/23 18:59 06:59 18:59 Intake Total 1650 75 Output Total 1050 Balance 1650 -975 Intake: IV 650 75 Intake, IV Titration 1000 Amount Piperacillin-Tazobactam 3 100 .375 gm In Sodium Chloride 0.9% 100 ml @ 25 mls/hr IVPB Q8H [id number] Rx#: [id number] Sodium Chloride 0.9% 1, 900 000 ml @ 75 mls/hr IV . [id number] Rx#:[id number] Output: Urine 1000 Estimated Blood Loss 50 Other: Voiding Method Indwelling Catheter # Voids 1 - Labs CBC & Chem 7: 11/17/23 02:44 11/17/23 02:44 Labs: Abnormal Lab Results - Last 24 Hours (Table) 11/16/23 11/16/23 11/17/23 Range/Units 09:23 09:23 02:44 WBC 11.27 H (4.50-10.00) X 10*3/uL RBC 3.60 L 3.84 L (3.80-5.40) m/uL Hgb 10.9 L 11.9 L (11.4-16.0) gm/dL Hct 37.1 L (37.2-46.3) % Plt Count 131 L 128 L (150-450) k/uL Neutrophils # 9.75 H (1.80-7.70) X 10*3/uL Lymphocytes # 0.9 L 0.77 L (1.0-4.8) k/uL Eosinophils # 0 L (0.04-0.35) X 10*3/uL Crenated Cell 2+ A Chloride 111 H (98-107) mmol/L Carbon Dioxide (21.6-31.8) mmol/L Anion Gap (4.00-12.00) mmol/L BUN 21 H (7-17) mg/dL BUN/Creatinine Ratio (12.00-20.00) Ratio Glucose (70-110) mg/dL Calcium (8.7-10.3) mg/dL Total Protein (6.2-8.2) g/dL Albumin (3.8-4.9) g/dL 11/17/23 Range/Units 02:44 WBC (4.50-10.00) X 10*3/uL RBC (3.80-5.40) m/uL Hgb (11.4-16.0) gm/dL Hct (37.2-46.3) % Plt Count (150-450) k/uL Neutrophils # (1.80-7.70) X 10*3/uL Lymphocytes # (1.0-4.8) k/uL Eosinophils # (0.04-0.35) X 10*3/uL Crenated Cell Chloride (98-107) mmol/L Carbon Dioxide 19.6 L (21.6-31.8) mmol/L Anion Gap 12.40 H (4.00-12.00) mmol/L BUN (7-17) mg/dL BUN/Creatinine Ratio 34.33 H (12.00-20.00) Ratio Glucose 67 L (70-110) mg/dL Calcium 7.9 L (8.7-10.3) mg/dL Total Protein 4.8 L (6.2-8.2) g/dL Albumin 3.1 L (3.8-4.9) g/dL Microbiology - Last 24 Hours (Table) 11/14/23 21:47 Blood Culture - Preliminary Blood
[2023-11-18] MEDS: PANTOPRAZOLE 40 MG/10 ML VIAL IVP SCH (08:28)
[2023-11-18 08:31] LABS: Basophils # (A) 0.02 X 10*3/uL (0.00-0.10); Basophils % (A) 0.2 %; Eosinophils # (A) 0.02 X 10*3/uL (0.04-0.35); Eosinophils % (A) 0.2 %; HCT 34.3 % (37.2-46.3); Lymphocytes # (A) 1.14 X 10*3/uL (0.90-5.00); Lymphocytes % (A) 13.4 %; MCH 30.9 pg (27.0-32.0); MCHC 32.1 g/dL (32.0-37.0); MCV 96.3 FL (80.0-97.0); Mean Platelet Volume 12.2 FL (9.5-12.2); Monocytes # (A) 0.72 X 10*3/uL (0.20-1.00); Monocytes % (A) 8.5 %; NRBC Per 100 WBC 0 X 10*3/uL (0.00-0.01); Neutrophils # (A) 6.55 X 10*3/uL (1.80-7.70); Platelet Count 138 X 10*3/uL (140-440); RBC 3.56 X 10*6/uL (4.10-5.20); RDW 13.1 % (11.5-14.5); WBC 8.51 X 10*3/uL (4.50-10.00)
[2023-11-18 08:51] LABS: Blood Urea Nitrogen 22.2 mg/dL (9.0-27.0); Calcium 8.1 mg/dL (8.7-10.3); Carbon Dioxide 23.8 mmol/L (21.6-31.8); Chloride 109 mmol/L (96-109); Glucose 82 mg/dL (70-110); Potassium 4.1 mmol/L (3.5-5.5); Sodium 143 mmol/L (135-145)
--- NOTE | 2023-11-18 13:44 | P.PN ---
Subjective Progress Note Date: 11/18/23 CHIEF COMPLAINT: Small bowel obstruction HISTORY OF PRESENT ILLNESS: Patient is postop day #2 status post lysis of extensive adhesions and small bowel resection x 2 with anastomosis. Patient reports her pain is controlled. She sitting at bedside chair. She did ambulate today. No bowel activity. Denies any nausea or vomiting. Does complain of feeling thirsty. Patient reports she is urinating. Patient has cough. Afebrile. WBC is down from 11.2-8.5 hemoglobin 11.0 creatinine 0.6 Patient seen and examined with Dr. Silva PHYSICAL EXAM: VITAL SIGNS: Reviewed. GENERAL: Well-developed in no acute distress. HEENT: No sclera icterus. Extraocular movements grossly intact. Moist buccal mucosa. Head is atraumatic, normocephalic. ABDOMEN: Soft. Nondistended. Mild tenderness at incision site. Incisional dressing with 2 small areas of shadowing NEUROLOGIC: Alert and oriented. Cranial nerves II through XII grossly intact. ASSESSMENT: 1. Small bowel obstruction PLAN: -Consult interventional radiology for PICC line placement for TPN -Consult placed for dietitian to initiate TPN -Consult pulmonary service regarding cough -Check chest x-ray -Keep patient strict n.p.o., No oral Meds -Continue IV fluids. Discussed with nursing staff to increase IV fluids for a total of 125 mL/h -Continue pain management -Encourage patient to ambulate -Incentive spirometer use encouraged -Continue antibiotics -Patient can have oral mouth swabs -DVT prophylaxis Lovenox and GI prophylaxis Protonix Physician Stitcher Operator note has been reviewed by physician. Signing provider agrees with the documented findings, assessment, and plan of care. Objective - Vital Signs Vital signs: Vital Signs Temp 97.6 F 11/18/23 07:35 Pulse 74 11/18/23 07:35 Resp 19 11/18/23 07:35 BP 122/66 11/18/23 07:35 Pulse Ox 91 L 11/18/23 07:35 FiO2 Intake & Output 11/17/23 11/18/23 11/18/23 18:59 06:59 18:59 Intake Total 900 Output Total 350 Balance 900 -350 Intake: Intake, IV Titration 900 Amount Lactated Ringers 1,000 ml 800 @ 100 mls/hr IV .Q10H [facility] Rx#:[id number] Piperacillin-Tazobactam 3 100 .375 gm In Sodium Chloride 0.9% 100 ml @ 25 mls/hr IVPB Q8H [facility] Rx#: [id number] Output: Urine 350 Other: Voiding Method Indwelling Catheter # Voids 1 - Labs CBC & Chem 7: 11/18/23 03:04 11/18/23 03:04 Labs: Abnormal Lab Results - Last 24 Hours (Table) 11/18/23 11/18/23 Range/Units 03:04 03:04 RBC 3.56 L (4.10-5.20) X 10*6/uL Hgb 11.0 L (12.0-15.0) g/dL Hct 34.3 L (37.2-46.3) % Plt Count 138 L (140-440) X 10*3/uL Immature Gran # 0.06 H (0.00-0.04) X 10*3/uL Eosinophils # 0.02 L (0.04-0.35) X 10*3/uL BUN/Creatinine Ratio 37.00 H (12.00-20.00) Ratio Calcium 8.1 L (8.7-10.3) mg/dL Microbiology - Last 24 Hours (Table) 11/14/23 21:47 Blood Culture - Preliminary Blood
--- NOTE | 2023-11-19 05:56 | P.PN ---
Subjective Progress Note Date: 11/18/23 73-year-old female, history of hyperlipidemia, osteoarthritis, who presents to the emergency department for abdominal pain. States that it started this morning. Pain is largely in the upper abdomen. She has associated nausea and vomiting. She was given oral Zofran by EMS without any relief in symptoms. Reports mild diarrhea. Denies any fever/chills or sick contacts. Blood work completed in ED reveals a WBC of 11.8, hemoglobin of 13.8 and platelet count of 212, sodium 137, potassium 4.2, BUNs/creatinine of 20/0.56 and blood glucose of 170, lactic acid of 2.1, amylase elevated at 1628, lipase elevated at 15,828, troponin less than 0.012, AST mildly elevated at 40 CT of the abdomen completed reveals small bowel obstruction with suspected transition point in mid to lower abdomen -EKG: Sinus rhythm. Ventricular rate 67 bpm, MS interval 211 ms, QRS duration 105 ms, QTc 433 ms --Admitted for acute pancreatitis, UTI and small bowel obstruction Labs are stable this morning with WBC of 12.3, hemoglobin of 12.5 and platelet count of 188, sodium 139, potassium 4.2, BUNs/creatinine of 25.2/0.7, amylase is down to 813 from's 1628 yesterday with lipase trending down to 1393 from 15,882 yesterday -Patient has been evaluated by general surgery for small bowel obstruction; recommending repeat CT of the abdomen with oral contrast 11/16/2023 Patient is seen and evaluated in follow-up today currently n.p.o. 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 Patient initially reported she was not passing any gas and has not had a bowel movement. After later discussion in the afternoon patient reports she did have a very small amount of flatus noted. Patient clinically looks well and reports to feeling improved today. Will await surgical report. 11/17/2023 Patient is seen in follow-up status post lysis of adhesion with bowel resection with anastomosis x 2 last night. Patient reports has not passed any gas and has not had a bowel movement. Patient is having some abdominal discomfort with breakthrough pain. Awaiting to work with nursing staff for PT to get up and walk. Patient is continued to be n.p.o. at this time per surgery until bowel activity. Patient is afebrile with no reports of chest pain or shortness of breath. 11/18/2023 Patient is seen and evaluated in follow-up this morning continues to be strict n.p.o. per surgery as patient is status post bowel resection with anastomosis and bowel obstruction. Patient reports having no flatus and no bowel movement as of yet. Patient is currently sitting up in the chair denying any chest pain or shortness of breath. Patient maintained on IV hydration and will continue. Patient is afebrile and labs reviewed and within normal limits. Encouraged increase activity as tolerated and discussed with nursing staff about frequent walking. Review of systems: Constitutional: No reports of fatigue, fever, or chills Cardiovascular: No reports of chest pain or palpitations Respiratory: No reports of shortness of breath or cough GI: No reports of nausea, vomiting, or diarrhea, reports no flatus and no bowel movement with continued abdominal discomfort : No reports of dysuria or retention Neurovascular: No reports of generalized weakness All medications have been reviewed Physical exam: Gen: This is a 73-year-old female who is awake, alert and oriented x 3, well- developed, obese HEENT: Head is atraumatic, normocephalic. Pupils equal, round. Sclerae is anicteric. NECK: Supple. No JVD. No lymphadenopathy. No thyromegaly. LUNGS: Clear to auscultation. No wheezes or rhonchi. No intercostal retractions. HEART: Regular rate and rhythm. No murmur. ABDOMEN: Soft. Hypoactive sounds noted. No masses. Mild tenderness. EXTREMITIES: No pedal edema. No calf tenderness. NEUROLOGICAL: Patient is awake, alert and oriented x3. Cranial nerves 2 through 12 are grossly intact. Assessment: -Acute pancreatitis; patient is status postcholecystectomy, liver enzymes along with amylase and lipase are trending down -Intractable nausea and vomiting/small bowel obstruction, status post lysis of adhesions with bowel resection 11/16/2023, continue n.p.o. until cleared by surgery. -History of hyperlipidemia; patient takes simvastatin which is placed on hold -History of osteoarthritis; takes Celebrex which is on hold -History of depression/anxiety; Celexa 20 mg nightly and will be held for now as patient is strict n.p.o. per surgery -GI prophylaxis -DVT prophylaxis; SCDs/subcu heparin -full code Plan: Patient currently n.p.o. with general surgery following and status post lysis of adhesions with bowel resection anastomosis. Patient is to be strict n.p.o. per surgery until bowel activity. PICC line is ordered as patient will be initiated on TPN per surgery Encouraged increase activity as tolerated. Discussed with nursing staff patient is able to walk frequently Will follow-up with repeat labs Prognosis is guarded The impression and plan of care has been dictated by Larisa Malik, Nurse Practitioner as directed. Dr. Obey MD I have performed a history and examination and MDM of this patient, discussed the same with the dictator, and agree with the dictator's assessment and plan as written ,documented as a scribe. Based on total visit time, I have performed more than 50% of the visit. Objective - Vital Signs Vital signs: Vital Signs Temp 97.4 F L 11/19/23 02:00 Pulse 72 11/19/23 02:00 Resp 18 11/18/23 15:57 BP 137/75 11/19/23 02:00 Pulse Ox 99 11/19/23 02:00 FiO2 Intake & Output 11/18/23 11/18/23 11/19/23 06:59 18:59 06:59 Output Total 350 Balance -350 Output: Urine 350 Other: Voiding Method Indwelling Catheter Toilet # Voids 2 - Labs CBC & Chem 7: 11/18/23 03:04 11/18/23 03:04 Labs: Abnormal Lab Results - Last 24 Hours (Table) 11/18/23 11/18/23 Range/Units 03:04 03:04 RBC 3.56 L (4.10-5.20) X 10*6/uL Hgb 11.0 L (12.0-15.0) g/dL Hct 34.3 L (37.2-46.3) % Plt Count 138 L (140-440) X 10*3/uL Immature Gran # 0.06 H (0.00-0.04) X 10*3/uL Eosinophils # 0.02 L (0.04-0.35) X 10*3/uL BUN/Creatinine Ratio 37.00 H (12.00-20.00) Ratio Calcium 8.1 L (8.7-10.3) mg/dL Microbiology - Last 24 Hours (Table) 11/14/23 21:47 Blood Culture - Preliminary Blood
--- NOTE | 2023-11-19 08:16 | P.CNPUL ---
History of Present Illness Consult date: 11/19/23 (g) Requesting physician: Isabella Parnell Reason for consult: cough Chief complaint: Abdominal pain History of present illness: Patient is a 73-year-old female admitted back on 11/14/2023 with abdominal pain. Found to have small bowel obstruction. On 11/16/2023 she did undergo exploratory laparotomy with lysis of adhesions and small bowel resection x 2 with anastomosis. Patient has been recovering on the medical surgical unit. WBC count 8.5, hemoglobin 11, hematocrit 34.3, platelets 138. CMP: Sodium 143, potassium 4.1, chloride 109, serum bicarb 24, BUN 22, creatinine 0.6, glucose 82. Patient is currently resting comfortably in bed, on room air, SpO2 99%. A chest x-ray was performed showing minimal atelectasis on the right. Afebrile. Here, chiefly as the patient has a cough. Patient's cough is described as nonproductive and persistent after her recent abdominal surgery. She denies any sputum production. She is not febrile. Denies URI-like symptoms. No chest pain. Denies pre-existing lung disease. She states that she has had a similar cough after previous surgeries and with general anesthesia. Chest x-ray was reviewed personally no obvious focal infiltrates or pneumonia. There are low lung volumes and minimal right lower lobe atelectasis. Patient does have an incentive spirometer which is at bedside. She has been utilizing it 10 times an hour while awake. She is achieving about 1000 on her IS. She has not started on oral diet yet. She has not started passing flatus. No bowel movement yet. She is resting comfortably in bed. No respiratory distress. Abdominal binder in place. Incisional abdominal pain reportedly well-controlled. There is a midline abdominal incision with postsurgical dressing intact. Some minimal spotting. Review of Systems Constitutional: Denies chills, Denies fever, Denies poor appetite, Denies weight gain, Denies weight loss Ears, nose, mouth and throat: Denies headache, Denies nasal congestion, Denies nasal discharge, Denies post-nasal drip, Denies sinus pain, Denies sinus pressure, Denies sore throat Cardiovascular: Denies chest pain, Denies leg edema, Denies orthopnea, Denies palpitations, Denies paroxysmal nocturnal dyspnea Respiratory: Reports cough, Denies congestion, Denies cough with sputum, Denies excessive sputum, Denies hemoptysis, Denies pain on inspiration, Denies wheezing Gastrointestinal: Reports as per HPI Genitourinary: Denies dysuria Musculoskeletal: Denies limitation of motion Integumentary: Denies rash Neurological: Denies confusion, Denies seizures Psychiatric: Denies anxiety, Denies depression Past Medical History Past Medical History: GERD/Reflux, Hyperlipidemia, Musculoskeletal Disorder, Osteoarthritis (OA) Additional Past Medical History / Comment(s): Vertigo, DDD, gastric bypass. History of Any Multi-Drug Resistant Organisms: None Reported Past Surgical History: Back Surgery, Bariatric Surgery, Cholecystectomy, Hysterectomy, Joint Replacement, Orthopedic Surgery Additional Past Surgical History / Comment(s): Fusion of neck and back, bilateral shoulder arthroscopy, right ankle fusion, surgery for gastric reflux, right reverse shoulder, bilateral knee replacements, left hip replacement. Past Anesthesia/Blood Transfusion Reactions: Previous Problems w/ Anesthesia Additional Past Anesthesia/Blood Transfusion Reaction / Comment(s): Difficulty coming out of anesthesia. Past Psychological History: Depression Smoking Status: Former smoker Past Alcohol Use History: Rare Additional Past Alcohol Use History / Comment(s): Smoked 20-30 years, 2 ppd, quit 24 years ago. Past Drug Use History: None Reported - Past Family History Mother Family Medical History: Cancer Father Family Medical History: Cancer Son(s) Family Medical History: Deep Vein Thrombosis (DVT) Medications and Allergies Home Medications Medication Instructions Recorded Confirmed Type Celecoxib [CeleBREX] 200 mg PO BID 04/17/16 11/14/23 History Citalopram Hydrobromide 20 mg PO HS 04/17/16 11/14/23 History [Citalopram HBr] Ferrous Sulfate [Feosol] 325 mg PO DAILY 04/17/16 11/14/23 History Multivitamins, Thera [Multivitamin] 1 tab PO DAILY 04/17/16 11/14/23 History Simvastatin [Zocor] 40 mg PO HS 04/17/16 11/14/23 History Famotidine [Pepcid] 40 mg PO HS 03/07/20 11/14/23 History Ascorbic Acid [Vitamin C] 1,000 mg PO DAILY 11/14/23 11/14/23 History Cholecalciferol [Vitamin D3 (25 25 mcg PO DAILY 11/14/23 11/14/23 History Mcg = 1000 Iu)] Cyanocobalamin (Vitamin B-12) 1,000 mcg PO DAILY 11/14/23 11/14/23 History [Vitamin B-12] Gabapentin [Neurontin] 100 mg PO BID 11/14/23 11/14/23 History HYDROcodone/APAP 7.5-325MG [[place] 1 tab PO BID PRN 11/14/23 11/14/23 History 7.5-325] Omeprazole 40 mg PO DAILY 11/14/23 11/14/23 History Solifenacin Succinate [Vesicare] 5 mg PO DAILY 11/14/23 11/14/23 History Zinc Sulfate 50 mg PO DAILY 11/14/23 11/14/23 History Allergies Allergy/AdvReac Type Severity Reaction Status Date / Time No Known Allergies Allergy Verified 11/14/23 19:22 Physical Exam Vitals: Vital Signs Temp Pulse Resp BP Pulse Ox 11/19/23 02:00 97.4 F L 72 137/75 99 11/18/23 20:00 98.1 F 77 113/66 95 11/18/23 15:57 98.1 F 78 18 124/77 97 11/18/23 07:35 97.6 F 74 19 122/66 91 L Intake and Output 11/18/23 11/18/23 11/19/23 14:59 22:59 06:59 Other: Voiding Method Toilet # Voids 1 2 GENERAL EXAM: Alert, 73-year-old obese white female, lying comfortably in bed, on room air, comfortable in no apparent distress. HEAD: Normocephalic and atraumatic EYES: Normal reaction of pupils, equal size. NOSE: Clear with pink turbinates. THROAT: No erythema or exudates. NECK: No masses, no JVD. CHEST: No chest wall deformity. LUNGS: Equal air entry with no crackles, wheeze, rhonchi or dullness. On room air. No conversational dyspnea or accessory muscle use.. CVS: S1 and S2 normal with no audible murmur, regular rhythm. No extra heart sounds ABDOMEN: Postsurgical abdomen with midline abdominal incision and postsurgical dressing intact minimal spotting. Abdominal binder in place. Active bowel sounds. No hepatosplenomegaly, no guarding or rigidity. SPINE: No scoliosis or deformity SKIN: No rashes CENTRAL NERVOUS SYSTEM: No focal deficits, tone is normal in all 4 extremities. EXTREMITIES: There is no peripheral edema, clubbing, or cyanosis. Peripheral pulses are intact. Results - Laboratory Findings CBC and BMP: 11/18/23 03:04 11/18/23 03:04 PT/INR, D-dimer PT 10.7 sec (10.0-12.5) 11/16/23 09:23 INR 1.0 (<1.2) 11/16/23 09:23 Abnormal lab findings: Abnormal Labs 11/14/23 11/14/23 11/14/23 17:07 17:07 17:07 WBC 11.8 H RBC Hgb Hct Plt Count Immature Gran # Neutrophils # 10.5 H Lymphocytes # 0.8 L Monocytes # Eosinophils # Crenated Cell Chloride Carbon Dioxide Anion Gap BUN 24 H BUN/Creatinine Ratio Glucose 170 H Plasma Lactic Acid Hugo 2.1 H* Calcium AST 40 H Total Protein Albumin HDL Cholesterol Amylase 1628 H* Lipase 72655 H Ur Specific [place] Urine Protein Urine Blood Urine Nitrite Ur Leukocyte Esterase Urine RBC Urine WBC Urine Bacteria Urine Mucus 11/14/23 11/15/23 11/15/23 21:42 04:21 05:43 WBC 12.53 H RBC 4.05 L Hgb Hct Plt Count Immature Gran # Neutrophils # 10.37 H Lymphocytes # Monocytes # 1.04 H Eosinophils # 0 L Crenated Cell Chloride Carbon Dioxide Anion Gap BUN BUN/Creatinine Ratio Glucose Plasma Lactic Acid Hugo Calcium AST Total Protein Albumin HDL Cholesterol 67.20 H Amylase Lipase Ur Specific [place] >1.050 H Urine Protein Trace H Urine Blood Small H Urine Nitrite Positive H Ur Leukocyte Esterase Small H Urine RBC 10 H Urine WBC 8 H Urine Bacteria Rare H Urine Mucus Rare H 11/15/23 11/16/23 11/16/23 05:43 09:23 09:23 WBC RBC 3.60 L Hgb 10.9 L Hct Plt Count 131 L Immature Gran # Neutrophils # Lymphocytes # 0.9 L Monocytes # Eosinophils # Crenated Cell Chloride 111 H Carbon Dioxide Anion Gap BUN 21 H BUN/Creatinine Ratio 36.00 H Glucose Plasma Lactic Acid Hugo Calcium 8.6 L AST Total Protein 6.1 L Albumin HDL Cholesterol Amylase 813 A* Lipase 1393 H Ur Specific [place] Urine Protein Urine Blood Urine Nitrite Ur Leukocyte Esterase Urine RBC Urine WBC Urine Bacteria Urine Mucus 11/17/23 11/17/23 11/18/23 02:44 02:44 03:04 WBC 11.27 H RBC 3.84 L 3.56 L Hgb 11.9 L 11.0 L Hct 37.1 L 34.3 L Plt Count 128 L 138 L Immature Gran # 0.06 H Neutrophils # 9.75 H Lymphocytes # 0.77 L Monocytes # Eosinophils # 0 L 0.02 L Crenated Cell 2+ A Chloride Carbon Dioxide 19.6 L Anion Gap 12.40 H BUN BUN/Creatinine Ratio 34.33 H Glucose 67 L Plasma Lactic Acid Hugo Calcium 7.9 L AST Total Protein 4.8 L Albumin 3.1 L HDL Cholesterol Amylase Lipase Ur Specific [place] Urine Protein Urine Blood Urine Nitrite Ur Leukocyte Esterase Urine RBC Urine WBC Urine Bacteria Urine Mucus 11/18/23 03:04 WBC RBC Hgb Hct Plt Count Immature Gran # Neutrophils # Lymphocytes # Monocytes # Eosinophils # Crenated Cell Chloride Carbon Dioxide Anion Gap BUN BUN/Creatinine Ratio 37.00 H Glucose Plasma Lactic Acid Hugo Calcium 8.1 L AST Total Protein Albumin HDL Cholesterol Amylase Lipase Ur Specific [place] Urine Protein Urine Blood Urine Nitrite Ur Leukocyte Esterase Urine RBC Urine WBC Urine Bacteria Urine Mucus - Diagnostic Findings Chest x-ray: image reviewed Assessment and Plan Assessment: Postsurgical cough Postoperative atelectasis Small bowel obstruction, status post operative day #3, following exploratory laparotomy with lysis of adhesions and small bowel resections x 2 with anastomosis History of cholecystectomy Acute pancreatitis History of GERD History of hyperlipidemia Former tobacco smoker Plan: Patient's medications, labs, chest x-ray reviewed On room air. Acute cough developed postsurgical Chest x-ray was reviewed personally, no evidence of pneumonia. Low lung volumes with minimal atelectasis at the right base. Incentive spirometer is at bedside, to be encouraged 10 times an hour while awake. Postoperative abdominal pain reportedly well-controlled with current analgesics Patient's declining any antitussive medications. Check Cepheid 4 Plex DVT prophylaxis: Lovenox GI prophylaxis: Protonix We will continue to follow I have personally seen and examined the patient, performed the documentation and the assessment and plan as written. Number of minutes spent on the visit:20 Time with Patient: Greater than 30
--- NOTE | 2023-11-19 08:53 | XR ---
EXAMINATION TYPE: XR chest 2V DATE OF EXAM: 11/18/2023 COMPARISON: 03/10/2019 HISTORY: Shortness of breath TECHNIQUE: Frontal and lateral views of the chest are obtained. FINDINGS: Scattered senescent parenchymal changes noted. Sided PICC line (distal tip overlying the SVC. No evid ence for pneumothorax. No evidence for infiltrate. Discoid atelectasis right lung base. Heart size is stable. Mediastinal structures are stable and grossly unremarkable. No evidence for hilar prominence. Degenerative changes dorsal spine. IMPRESSION: 1. No evidence for acute pulmonary disease. [facility], , 11/19/2023 8:51 AM
--- NOTE | 2023-11-19 12:28 | P.PN ---
Subjective Progress Note Date: 11/19/23 CHIEF COMPLAINT: Small bowel obstruction HISTORY OF PRESENT ILLNESS: Patient is postop day #3 status post lysis of extensive adhesions and small bowel resection x 2 with anastomosis. Patient reports her pain is controlled. She has been up and ambulating. Denies any nausea or vomiting. No flatus. Chest x-ray reports no evidence of acute pulmonary process. Patient seen by pulmonary service for her cough. Afebrile. PHYSICAL EXAM: VITAL SIGNS: Reviewed. GENERAL: Well-developed in no acute distress. ABDOMEN: Soft. Nondistended. Mild tenderness at incision site. Incisional dressing with 2 small areas of shadowing NEUROLOGIC: Alert and oriented. Cranial nerves II through XII grossly intact. ASSESSMENT: 1. Small bowel obstruction 2. Cough likely due to atelectasis. PLAN: -IR service consulted for PICC line placement for TPN -Consult interventional radiology for PICC line placement for TPN -Consult placed for dietitian to initiate TPN -Keep patient strict n.p.o., No oral Meds -Continue IV fluids -Continue pain management -Encourage patient to ambulate -Incentive spirometer use encouraged -Continue antibiotics -DVT prophylaxis Lovenox and GI prophylaxis Protonix Physician Director Of Restaurant Operations note has been reviewed by physician. Signing provider agrees with the documented findings, assessment, and plan of care. Objective - Vital Signs Vital signs: Vital Signs Temp 97.1 F L 11/19/23 07:36 Pulse 80 11/19/23 07:36 Resp 18 11/19/23 07:36 BP 118/72 11/19/23 07:36 Pulse Ox 98 11/19/23 07:36 FiO2 Intake & Output 11/18/23 11/19/23 11/19/23 18:59 06:59 18:59 Other: Voiding Method Toilet # Voids 2 3 - Labs CBC & Chem 7: 11/18/23 03:04 11/18/23 03:04 Labs: Microbiology - Last 24 Hours (Table) 11/14/23 21:47 Blood Culture - Preliminary Blood
[2023-11-19 13:02] LABS: ALT 18 U/L (4-34); AST 24 U/L (14-36); African American GFR (CKD) >90 (>60 ml/min/1.73 sqM); Albumin/Globulin Ratio 1.3; Alkaline Phosphatase 86 U/L (38-126); Anion Gap 6 mmol/L; Blood Urea Nitrogen 18 mg/dL (7-17); Calcium 8.8 mg/dL (8.4-10.2); Carbon Dioxide 25 mmol/L (22-30); Chloride 109 mmol/L (98-107); Globulin 2.4 g/dL; Glucose 73 mg/dL (74-99); Magnesium 1.7 mg/dL (1.6-2.3); Non-African American GFR(CKD) >90 (>60 ml/min/1.73 sqM); Potassium 3.7 mmol/L (3.5-5.1); Sodium 140 mmol/L (137-145); Total Bilirubin 0.7 mg/dL (0.2-1.3); Total Protein 5.4 g/dL (6.3-8.2)
[2023-11-19 14:50] VITALS: BMI 31.8
[2023-11-19] MEDS: MVI, ADULT NO.4 WITH VIT K 10 ML, TRACE (CONC-1ML/DOSE) 1 ML in AMINO ACID 5%-D20W+LYTE... IV SCH (14:54)
[2023-11-19] MEDS ORDERED: DEXTROSE 50% SYRINGE 50 ML IVP PRN ×2 (15:34)
[2023-11-19] MEDS: INSULIN ASPART (NovoLOG) 100 UNIT/ML VIAL SQ SCH (17:54)
[2023-11-20 04:28] LABS: ALT 14 U/L (4-34); AST 20 U/L (14-36); African American GFR (CKD) >90 (>60 ml/min/1.73 sqM); Albumin 2.3 g/dL (3.5-5.0); Albumin/Globulin Ratio 1.2; Alkaline Phosphatase 55 U/L (38-126); Anion Gap 1 mmol/L; Blood Urea Nitrogen 15 mg/dL (7-17); Calcium 7.9 mg/dL (8.4-10.2); Carbon Dioxide 27 mmol/L (22-30); Chloride 108 mmol/L (98-107); Glucose 130 mg/dL (74-99); Magnesium 1.6 mg/dL (1.6-2.3); Non-African American GFR(CKD) >90 (>60 ml/min/1.73 sqM); Phosphorus 3.5 mg/dL (2.5-4.5); Potassium 3.2 mmol/L (3.5-5.1); Sodium 136 mmol/L (137-145); Total Bilirubin 0.6 mg/dL (0.2-1.3); Total Protein 4.3 g/dL (6.3-8.2)
[2023-11-20] MEDS: FAT EMULSION 20% 250 ML in EMPTY BAG 1 BAG IV SCH (09:02)
--- NOTE | 2023-11-20 10:46 | P.PN ---
Subjective Progress Note Date: 11/19/23 73-year-old female, history of hyperlipidemia, osteoarthritis, who presents to the emergency department for abdominal pain. States that it started this morning. Pain is largely in the upper abdomen. She has associated nausea and vomiting. She was given oral Zofran by EMS without any relief in symptoms. Reports mild diarrhea. Denies any fever/chills or sick contacts. Blood work completed in ED reveals a WBC of 11.8, hemoglobin of 13.8 and platelet count of 212, sodium 137, potassium 4.2, BUNs/creatinine of 20/0.56 and blood glucose of 170, lactic acid of 2.1, amylase elevated at 1628, lipase elevated at 15,828, troponin less than 0.012, AST mildly elevated at 40 CT of the abdomen completed reveals small bowel obstruction with suspected transition point in mid to lower abdomen -EKG: Sinus rhythm. Ventricular rate 67 bpm, AL interval 211 ms, QRS duration 105 ms, QTc 433 ms --Admitted for acute pancreatitis, UTI and small bowel obstruction Labs are stable this morning with WBC of 12.3, hemoglobin of 12.5 and platelet count of 188, sodium 139, potassium 4.2, BUNs/creatinine of 25.2/0.7, amylase is down to 813 from's 1628 yesterday with lipase trending down to 1393 from 15,882 yesterday -Patient has been evaluated by general surgery for small bowel obstruction; recommending repeat CT of the abdomen with oral contrast 11/16/2023 Patient is seen and evaluated in follow-up today currently n.p.o. 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 Patient initially reported she was not passing any gas and has not had a bowel movement. After later discussion in the afternoon patient reports she did have a very small amount of flatus noted. Patient clinically looks well and reports to feeling improved today. Will await surgical report. 11/17/2023 Patient is seen in follow-up status post lysis of adhesion with bowel resection with anastomosis x 2 last night. Patient reports has not passed any gas and has not had a bowel movement. Patient is having some abdominal discomfort with breakthrough pain. Awaiting to work with nursing staff for PT to get up and walk. Patient is continued to be n.p.o. at this time per surgery until bowel activity. Patient is afebrile with no reports of chest pain or shortness of breath. 11/18/2023 Patient is seen and evaluated in follow-up this morning continues to be strict n.p.o. per surgery as patient is status post bowel resection with anastomosis and bowel obstruction. Patient reports having no flatus and no bowel movement as of yet. Patient is currently sitting up in the chair denying any chest pain or shortness of breath. Patient maintained on IV hydration and will continue. Patient is afebrile and labs reviewed and within normal limits. Encouraged increase activity as tolerated and discussed with nursing staff about frequent walking. 11/19/2023 Patient is seen in follow-up doing well has been walking frequently continues to be strict n.p.o. and patient has received a PICC line with surgery following planning on initiating TPN. No bowel activity as of yet and is being closely monitored. Patient vital signs and labs within normal limits and lipase has normalized and is currently 135. Patient reports continued mild discomfort although significantly improved and reports to feeling hungry and thirsty. Patient is voiding with no difficulties after [place] removal, remains afebrile and denies any chest pain or shortness of breath. Patient did report an occasional cough and pulmonary was consulted although chest x-ray is within normal limits. Review of systems: Constitutional: No reports of fatigue, fever, or chills Cardiovascular: No reports of chest pain or palpitations Respiratory: No reports of shortness of breath or cough GI: No reports of nausea, vomiting, or diarrhea, reports no flatus and no bowel movement with continued abdominal discomfort : No reports of dysuria or retention Neurovascular: No reports of generalized weakness All medications have been reviewed Physical exam: Gen: This is a 73-year-old female who is awake, alert and oriented x 3, well- developed, obese HEENT: Head is atraumatic, normocephalic. Pupils equal, round. Sclerae is anicteric. NECK: Supple. No JVD. No lymphadenopathy. No thyromegaly. LUNGS: Clear to auscultation. No wheezes or rhonchi. No intercostal retractions. HEART: Regular rate and rhythm. No murmur. ABDOMEN: Soft. Hypoactive sounds noted. No masses. Mild tenderness. EXTREMITIES: No pedal edema. No calf tenderness. NEUROLOGICAL: Patient is awake, alert and oriented x3. Cranial nerves 2 through 12 are grossly intact. Assessment: -Acute pancreatitis; patient is status postcholecystectomy, liver enzymes along with amylase and lipase are normalized -Intractable nausea and vomiting/small bowel obstruction, status post lysis of adhesions with bowel resection 11/16/2023, continue n.p.o. per surgery and is receiving a PICC line for TPN initiation -History of hyperlipidemia; patient takes simvastatin which is placed on hold -History of osteoarthritis; takes Celebrex which is on hold -History of depression/anxiety; Celexa 20 mg nightly and will be held for now as patient is strict n.p.o. per surgery -GI prophylaxis -DVT prophylaxis; SCDs/subcu heparin -full code Plan: Patient currently n.p.o. with general surgery following and status post lysis of adhesions with bowel resection anastomosis. Patient is to be strict n.p.o. per surgery until bowel activity. PICC line received as patient will be initiated on TPN per surgery Encouraged increase activity as tolerated. Discussed with nursing staff patient is able to walk frequently Will follow-up with repeat labs, replace electrolytes per protocol Prognosis is guarded The impression and plan of care has been dictated by Larisa Malik, Nurse Practitioner as directed. Dr. Obey MD I have performed a history and examination and MDM of this patient, discussed the same with the dictator, and agree with the dictator's assessment and plan as written ,documented as a scribe. Based on total visit time, I have performed more than 50% of the visit. Objective - Vital Signs Vital signs: Vital Signs Temp 97.1 F L 11/20/23 07:14 Pulse 66 11/20/23 07:14 Resp 18 11/20/23 07:14 BP 134/77 11/20/23 07:14 Pulse Ox 93 L 11/20/23 07:14 FiO2 Intake & Output 11/19/23 11/20/23 11/20/23 18:59 06:59 18:59 Weight 89.358 kg Other: Voiding Method Toilet # Voids 1 1 - Labs CBC & Chem 7: 11/18/23 03:04 11/20/23 03:36 Labs: Abnormal Lab Results - Last 24 Hours (Table) 11/19/23 11/20/23 Range/Units 12:16 03:36 Sodium 136 L (137-145) mmol/L Potassium 3.2 L (3.5-5.1) mmol/L Chloride 109 H 108 H (98-107) mmol/L BUN 18 H (7-17) mg/dL Creatinine 0.47 L 0.41 L (0.52-1.04) mg/dL Glucose 73 L 130 H (74-99) mg/dL Calcium 7.9 L (8.4-10.2) mg/dL Total Protein 5.4 L 4.3 L (6.3-8.2) g/dL Albumin 3.0 L 2.3 L (3.5-5.0) g/dL
--- NOTE | 2023-11-20 12:07 | P.PN ---
Subjective Progress Note Date: 11/20/23 CHIEF COMPLAINT: Small bowel obstruction HISTORY OF PRESENT ILLNESS: Patient is postop day #4 status post lysis of extensive adhesions and small bowel resection x 2 with anastomosis. Patient is sitting at bedside chair. Her pain is controlled. She has pain with movement. She did get her PICC line and has been started on TPN. No bowel activity yet. Afebrile. Cough is better. Potassium 3.2 PHYSICAL EXAM: VITAL SIGNS: Reviewed. GENERAL: Well-developed in no acute distress. ABDOMEN: Soft. Nondistended. Mild tenderness at incision site. Incisional dressing with 2 small areas of shadowing NEUROLOGIC: Alert and oriented. Cranial nerves II through XII grossly intact. ASSESSMENT: 1. Small bowel obstruction 2. Cough likely due to atelectasis. PLAN: -Change Optifoam dressing -Continue TPN for nutrition support -Keep patient strict n.p.o. -Potassium to be replaced by pharmacy -Continue IV fluids -Continue pain management -Encourage patient to ambulate -Incentive spirometer use encouraged -Continue antibiotics -DVT prophylaxis Lovenox and GI prophylaxis Protonix Physician Marketing Ambassador note has been reviewed by physician. Signing provider agrees with the documented findings, assessment, and plan of care. Objective - Vital Signs Vital signs: Vital Signs Temp 97.1 F L 11/20/23 07:14 Pulse 66 11/20/23 07:14 Resp 18 11/20/23 07:14 BP 134/77 11/20/23 07:14 Pulse Ox 93 L 11/20/23 07:14 FiO2 Intake & Output 11/19/23 11/20/23 11/20/23 18:59 06:59 18:59 Weight 89.358 kg Other: Voiding Method Toilet # Voids 1 1 - Labs CBC & Chem 7: 11/18/23 03:04 11/20/23 03:36 Labs: Abnormal Lab Results - Last 24 Hours (Table) 11/19/23 11/20/23 Range/Units 12:16 03:36 Sodium 136 L (137-145) mmol/L Potassium 3.2 L (3.5-5.1) mmol/L Chloride 109 H 108 H (98-107) mmol/L BUN 18 H (7-17) mg/dL Creatinine 0.47 L 0.41 L (0.52-1.04) mg/dL Glucose 73 L 130 H (74-99) mg/dL Calcium 7.9 L (8.4-10.2) mg/dL Total Protein 5.4 L 4.3 L (6.3-8.2) g/dL Albumin 3.0 L 2.3 L (3.5-5.0) g/dL
--- NOTE | 2023-11-20 14:26 | P.PN ---
Subjective Progress Note Date: 11/20/23 Patient is a 73-year-old female admitted back on 11/14/2023 with abdominal pain. Found to have small bowel obstruction. On 11/16/2023 she did undergo exploratory laparotomy with lysis of adhesions and small bowel resection x 2 with anastomosis. Patient has been recovering on the medical surgical unit. WBC count 8.5, hemoglobin 11, hematocrit 34.3, platelets 138. CMP: Sodium 143, potassium 4.1, chloride 109, serum bicarb 24, BUN 22, creatinine 0.6, glucose 82. Patient is currently resting comfortably in bed, on room air, SpO2 99%. A chest x-ray was performed showing minimal atelectasis on the right. Afebrile. Here, chiefly as the patient has a cough. Patient's cough is described as nonproductive and persistent after her recent abdominal surgery. She denies any sputum production. She is not febrile. Denies URI-like symptoms. No chest pain. Denies pre-existing lung disease. She states that she has had a similar cough after previous surgeries and with general anesthesia. Chest x-ray was reviewed personally no obvious focal infiltrates or pneumonia. There are low lung volumes and minimal right lower lobe atelectasis. Patient does have an incentive spirometer which is at bedside. She has been utilizing it 10 times an hour while awake. She is achieving about 1000 on her IS. She has not started on oral diet yet. She has not started passing flatus. No bowel movement yet. She is resting comfortably in bed. No respiratory distress. Abdominal binder in place. Incisional abdominal pain reportedly well-controlled. There is a midline abdominal incision with postsurgical dressing intact. Some minimal spotting. The patient is seen today November 20, 2023 in follow-up on the regular medical floor. She is currently sitting up in a chair at the bedside. Awake and alert in no acute distress. Maintaining good O2 saturations in the 90s on room air. She denies any worsening cough or congestion. No shortness of breath. No hemoptysis. She is being nourished with TPN at 90 mL/h. Remains NPO. She is working well with the incentive spirometer. Chest x-ray had revealed no evidence of acute pulmonary process. Blood culture revealed no growth. Sodium 136. Potassium 3.2. Bicarb 27. BUN 15. Creatinine 0.41. Glucose 130. Viral screen was negative. She remains on Lovenox for DVT prophylaxis. Lactated Ringer's at 100 mL/h. Objective - Vital Signs Vital signs: Vital Signs Temp 97.1 F L 11/20/23 13:36 Pulse 63 11/20/23 13:36 Resp 18 11/20/23 13:36 BP 127/69 11/20/23 13:36 Pulse Ox 92 L 11/20/23 13:36 FiO2 Intake & Output 11/19/23 11/20/23 11/20/23 18:59 06:59 18:59 Weight 89.358 kg Other: Voiding Method Toilet Toilet # Voids 1 1 - Exam GENERAL EXAM: Alert, pleasant 73-year-old female, on room air, up in a chair, comfortable in no apparent distress. HEAD: Normocephalic. EYES: Normal reaction of pupils, equal size. NOSE: Clear with pink turbinates. THROAT: No erythema or exudates. NECK: No masses, no JVD. CHEST: No chest wall deformity. LUNGS: Equal air entry with no crackles, wheeze, rhonchi or dullness. CVS: S1 and S2 normal with no audible murmur, regular rhythm. ABDOMEN: Abdominal binder in place. No hepatosplenomegaly, normal bowel sounds, no guarding or rigidity. SPINE: No scoliosis or deformity SKIN: No rashes CENTRAL NERVOUS SYSTEM: No focal deficits, tone is normal in all 4 extremities. EXTREMITIES: There is no peripheral edema. No clubbing, no cyanosis. Peripheral pulses are intact. - Labs CBC & Chem 7: 11/18/23 03:04 11/20/23 03:36 Labs: Abnormal Lab Results - Last 24 Hours (Table) 11/20/23 Range/Units 03:36 Sodium 136 L (137-145) mmol/L Potassium 3.2 L (3.5-5.1) mmol/L Chloride 108 H (98-107) mmol/L Creatinine 0.41 L (0.52-1.04) mg/dL Glucose 130 H (74-99) mg/dL Calcium 7.9 L (8.4-10.2) mg/dL Total Protein 4.3 L (6.3-8.2) g/dL Albumin 2.3 L (3.5-5.0) g/dL Microbiology - Last 24 Hours (Table) 11/14/23 21:47 Blood Culture - Final Blood Assessment and Plan Assessment: Postsurgical cough improved, stable and on room air viral screen negative Postoperative atelectasis, chest x-ray reveals no acute pulmonary process Small bowel obstruction, status post operative day #4, following exploratory laparotomy with lysis of adhesions and small bowel resections x 2 with anastomosis History of cholecystectomy Acute pancreatitis History of GERD History of hyperlipidemia Former tobacco smoker Plan: The patient was seen and evaluated Labs and medications reviewed Cough has subsided Working with the incentive spirometer Sitting up in a chair Remains on TPN Remains n.p.o. Greenberg for DVT prophylaxis Increase her activity as tolerated We will continue to follow I have personally seen and examined the patient, performed the documentation and the assessment and plan as written. Number of minutes spent on the visit: 10.
[2023-11-20] MEDS ORDERED: MVI, ADULT NO.4 WITH VIT K 10 ML, TRACE (CONC-1ML/DOSE) 1 ML in AMINO ACID 5%-D20W+LYTE... IV SCH (15:00)
[2023-11-20 15:02] LABS: Glucose,Whole Blood 113 mg/dL (70-110)
[2023-11-20 15:03] LABS: Glucose,Whole Blood 121 mg/dL (70-110)
[2023-11-20 15:03] LABS: Glucose,Whole Blood 107 mg/dL (70-110)
[2023-11-20 15:03] LABS: Glucose,Whole Blood 135 mg/dL (70-110)
[2023-11-20 15:03] LABS: Glucose,Whole Blood 124 mg/dL (70-110)
[2023-11-20] MEDS: 1: MVI, ADULT NO.4 WITH VIT K 10 ML, TRACE (CONC-1ML/DOSE) 1 ML in AMINO ACID 5%-D20W+LY IV SCH (15:43)
[2023-11-20 16:37] LABS: Glucose,Whole Blood 139 mg/dL (70-110)
[2023-11-21 00:57] LABS: Glucose,Whole Blood 147 mg/dL (70-110)
[2023-11-21 05:44] LABS: Ionized Calcium 4.5 mg/dL (4.5-5.3)
[2023-11-21 05:56] LABS: Glucose,Whole Blood 115 mg/dL (70-110)
[2023-11-21 05:57] LABS: African American GFR (CKD) >90 (>60 ml/min/1.73 sqM); Anion Gap 2 mmol/L; Blood Urea Nitrogen 12 mg/dL (7-17); Carbon Dioxide 30 mmol/L (22-30); Chloride 107 mmol/L (98-107); Glucose 120 mg/dL (74-99); Magnesium 1.6 mg/dL (1.6-2.3); Non-African American GFR(CKD) >90 (>60 ml/min/1.73 sqM); Phosphorus 3.6 mg/dL (2.5-4.5); Potassium 3.2 mmol/L (3.5-5.1); Sodium 139 mmol/L (137-145)
--- NOTE | 2023-11-21 06:53 | P.PN ---
Subjective Progress Note Date: 11/20/23 73-year-old female, history of hyperlipidemia, osteoarthritis, who presents to the emergency department for abdominal pain. States that it started this morning. Pain is largely in the upper abdomen. She has associated nausea and vomiting. She was given oral Zofran by EMS without any relief in symptoms. Reports mild diarrhea. Denies any fever/chills or sick contacts. Blood work completed in ED reveals a WBC of 11.8, hemoglobin of 13.8 and platelet count of 212, sodium 137, potassium 4.2, BUNs/creatinine of 20/0.56 and blood glucose of 170, lactic acid of 2.1, amylase elevated at 1628, lipase elevated at 15,828, troponin less than 0.012, AST mildly elevated at 40 CT of the abdomen completed reveals small bowel obstruction with suspected transition point in mid to lower abdomen -EKG: Sinus rhythm. Ventricular rate 67 bpm, AL interval 211 ms, QRS duration 105 ms, QTc 433 ms --Admitted for acute pancreatitis, UTI and small bowel obstruction Labs are stable this morning with WBC of 12.3, hemoglobin of 12.5 and platelet count of 188, sodium 139, potassium 4.2, BUNs/creatinine of 25.2/0.7, amylase is down to 813 from's 1628 yesterday with lipase trending down to 1393 from 15,882 yesterday -Patient has been evaluated by general surgery for small bowel obstruction; recommending repeat CT of the abdomen with oral contrast 11/16/2023 Patient is seen and evaluated in follow-up today currently n.p.o. 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 Patient initially reported she was not passing any gas and has not had a bowel movement. After later discussion in the afternoon patient reports she did have a very small amount of flatus noted. Patient clinically looks well and reports to feeling improved today. Will await surgical report. 11/17/2023 Patient is seen in follow-up status post lysis of adhesion with bowel resection with anastomosis x 2 last night. Patient reports has not passed any gas and has not had a bowel movement. Patient is having some abdominal discomfort with breakthrough pain. Awaiting to work with nursing staff for PT to get up and walk. Patient is continued to be n.p.o. at this time per surgery until bowel activity. Patient is afebrile with no reports of chest pain or shortness of breath. 11/18/2023 Patient is seen and evaluated in follow-up this morning continues to be strict n.p.o. per surgery as patient is status post bowel resection with anastomosis and bowel obstruction. Patient reports having no flatus and no bowel movement as of yet. Patient is currently sitting up in the chair denying any chest pain or shortness of breath. Patient maintained on IV hydration and will continue. Patient is afebrile and labs reviewed and within normal limits. Encouraged increase activity as tolerated and discussed with nursing staff about frequent walking. 11/19/2023 Patient is seen in follow-up doing well has been walking frequently continues to be strict n.p.o. and patient has received a PICC line with surgery following planning on initiating TPN. No bowel activity as of yet and is being closely monitored. Patient vital signs and labs within normal limits and lipase has normalized and is currently 135. Patient reports continued mild discomfort although significantly improved and reports to feeling hungry and thirsty. Patient is voiding with no difficulties after Car[place]quillo removal, remains afebrile and denies any chest pain or shortness of breath. Patient did report an occasional cough and pulmonary was consulted although chest x-ray is within normal limits. 11/20/2023 Patient is seen and evaluated in follow-up today continues to be strict n.p.o. per surgery with no bowel activity as of yet. Patient has been up and walking frequently and encouraged the patient to continue to do so throughout the day. Patient is afebrile and denies chest pain or shortness of breath. Abdominal pain is improving and patient denies any nausea or vomiting. Patient is maintained on TPN and will continue for now until bowel activity resumes. Follow-up on labs in the a.m. and replace electrolytes per protocol. Review of systems: Constitutional: No reports of fatigue, fever, or chills Cardiovascular: No reports of chest pain or palpitations Respiratory: No reports of shortness of breath or cough GI: No reports of nausea, vomiting, or diarrhea, reports no flatus and no bowel movement with continued abdominal discomfort although improving : No reports of dysuria or retention Neurovascular: No reports of generalized weakness All medications have been reviewed Physical exam: Gen: This is a 73-year-old female who is awake, alert and oriented x 3, well- developed, obese HEENT: Head is atraumatic, normocephalic. Pupils equal, round. Sclerae is ani cteric. NECK: Supple. No JVD. No lymphadenopathy. No thyromegaly. LUNGS: Clear to auscultation. No wheezes or rhonchi. No intercostal retractions. HEART: Regular rate and rhythm. No murmur. ABDOMEN: Soft. Hypoactive sounds noted. No masses. Mild tenderness. EXTREMITIES: No pedal edema. No calf tenderness. NEUROLOGICAL: Patient is awake, alert and oriented x3. Cranial nerves 2 through 12 are grossly intact. Assessment: -Acute pancreatitis; patient is status postcholecystectomy, liver enzymes along with amylase and lipase are normalized -Intractable nausea and vomiting/small bowel obstruction, status post lysis of adhesions with bowel resection 11/16/2023, continue n.p.o. per surgery and is receiving TPN -History of hyperlipidemia; patient takes simvastatin which is placed on hold -History of osteoarthritis; takes Celebrex which is on hold -History of depression/anxiety; Celexa 20 mg nightly and will be held for now as patient is strict n.p.o. per surgery -Obesity with a BMI 31.8 -GI prophylaxis -DVT prophylaxis; SCDs/subcu heparin -full code Plan: Patient currently n.p.o. with general surgery following and status post lysis of adhesions with bowel resection anastomosis. Patient is to be strict n.p.o. per surgery until bowel activity. PICC line received as patient will be continued on TPN per surgery Encouraged increase activity as tolerated. Discussed with nursing staff patient is able to walk frequently Will follow-up with repeat labs, replace electrolytes per protocol Prognosis is guarded The impression and plan of care has been dictated by Larisa aMlik, Nurse Practitioner as directed. Dr. Obey MD I have performed a history and examination and MDM of this patient, discussed the same with the dictator, and agree with the dictator's assessment and plan as written ,documented as a scribe. Based on total visit time, I have performed more than 50% of the visit. Objective - Vital Signs Vital signs: Vital Signs Temp 97.1 F L 11/20/23 07:14 Pulse 66 11/20/23 07:14 Resp 18 11/20/23 07:14 BP 134/77 11/20/23 07:14 Pulse Ox 93 L 11/20/23 07:14 FiO2 Intake & Output 11/19/23 11/20/23 11/20/23 18:59 06:59 18:59 Weight 89.358 kg Other: Voiding Method Toilet # Voids 1 1 - Labs CBC & Chem 7: 11/18/23 03:04 11/21/23 04:44 Labs: Abnormal Lab Results - Last 24 Hours (Table) 11/19/23 11/20/23 Range/Units 12:16 03:36 Sodium 136 L (137-145) mmol/L Potassium 3.2 L (3.5-5.1) mmol/L Chloride 109 H 108 H (98-107) mmol/L BUN 18 H (7-17) mg/dL Creatinine 0.47 L 0.41 L (0.52-1.04) mg/dL Glucose 73 L 130 H (74-99) mg/dL Calcium 7.9 L (8.4-10.2) mg/dL Total Protein 5.4 L 4.3 L (6.3-8.2) g/dL Albumin 3.0 L 2.3 L (3.5-5.0) g/dL
[2023-11-21] MEDS: MAGNESIUM SULFATE-D5W PMX 1 GM in DEXTROSE/WATER 1 100ML.BAG IVPB SCH (08:47)
--- NOTE | 2023-11-21 09:55 | P.PN ---
Subjective Progress Note Date: 11/21/23 Principal diagnosis: Small bowel obstruction 73-year-old female doing well after small bowel resection 5 days ago. Passing flatus today. Mild soreness. She has been ambulating. Objective - Vital Signs Vital signs: Vital Signs Temp 98.0 F 11/21/23 07:21 Pulse 62 11/21/23 07:21 Resp 16 11/21/23 07:21 BP 126/79 11/21/23 07:21 Pulse Ox 98 11/21/23 07:21 FiO2 Intake & Output 11/20/23 11/21/23 11/21/23 18:59 06:59 18:59 Weight 89.358 kg Other: Voiding Method Toilet Toilet # Voids 2 1 - Exam Abdomen: Soft, nondistended, dressing clean and dry, mild tenderness - Labs CBC & Chem 7: 11/18/23 03:04 11/21/23 04:44 Labs: Abnormal Lab Results - Last 24 Hours (Table) 11/19/23 11/19/23 11/20/23 Range/Units 17:39 21:00 00:48 Potassium (3.5-5.1) mmol/L Creatinine (0.52-1.04) mg/dL Glucose (74-99) mg/dL POC Glucose (mg/dL) 113 H 124 H 135 H (70-110) mg/dL Calcium (8.4-10.2) mg/dL 11/20/23 11/20/23 11/21/23 Range/Units 11:23 16:35 00:56 Potassium (3.5-5.1) mmol/L Creatinine (0.52-1.04) mg/dL Glucose (74-99) mg/dL POC Glucose (mg/dL) 121 H 139 H 147 H (70-110) mg/dL Calcium (8.4-10.2) mg/dL 11/21/23 11/21/23 Range/Units 04:44 05:54 Potassium 3.2 L (3.5-5.1) mmol/L Creatinine 0.44 L (0.52-1.04) mg/dL Glucose 120 H (74-99) mg/dL POC Glucose (mg/dL) 115 H (70-110) mg/dL Calcium 8.0 L (8.4-10.2) mg/dL Microbiology - Last 24 Hours (Table) 11/14/23 21:47 Blood Culture - Final Blood Assessment and Plan Plan: Patient doing well today. Begin clear liquid diet. Ambulate.
[2023-11-21 10:05] LABS: Basophils # (A) 0.03 X 10*3/uL (0.00-0.10); Basophils % (A) 0.5 %; Eosinophils # (A) 0.26 X 10*3/uL (0.04-0.35); Eosinophils % (A) 4.1 %; HCT 31.6 % (37.2-46.3); HGB 10.2 g/dL (12.0-15.0); Lymphocytes # (A) 0.76 X 10*3/uL (0.90-5.00); MCH 30.3 pg (27.0-32.0); MCHC 32.3 g/dL (32.0-37.0); MCV 93.8 FL (80.0-97.0); Mean Platelet Volume 12.1 FL (9.5-12.2); Monocytes # (A) 0.58 X 10*3/uL (0.20-1.00); Monocytes % (A) 9.1 %; NRBC Per 100 WBC 0 X 10*3/uL (0.00-0.01); Neutrophils # (A) 4.64 X 10*3/uL (1.80-7.70); Neutrophils % (A) 73.2 %; Platelet Count 140 X 10*3/uL (140-440); RBC 3.37 X 10*6/uL (4.10-5.20); RDW 12.8 % (11.5-14.5); WBC 6.34 X 10*3/uL (4.50-10.00)
[2023-11-21] MEDS: POTASSIUM CHLORIDE 20 MEQ in WATER FOR INJECTION 1 100ML.BAG IVPB SCH (10:58)
--- NOTE | 2023-11-21 11:23 | P.PN ---
Subjective Progress Note Date: 11/21/23 Patient is a 73-year-old female admitted back on 11/14/2023 with abdominal pain. Found to have small bowel obstruction. On 11/16/2023 she did undergo exploratory laparotomy with lysis of adhesions and small bowel resection x 2 with anastomosis. Patient has been recovering on the medical surgical unit. WBC count 8.5, hemoglobin 11, hematocrit 34.3, platelets 138. CMP: Sodium 143, potassium 4.1, chloride 109, serum bicarb 24, BUN 22, creatinine 0.6, glucose 82. Patient is currently resting comfortably in bed, on room air, SpO2 99%. A chest x-ray was performed showing minimal atelectasis on the right. Afebrile. Here, chiefly as the patient has a cough. Patient's cough is described as nonproductive and persistent after her recent abdominal surgery. She denies any sputum production. She is not febrile. Denies URI-like symptoms. No chest pain. Denies pre-existing lung disease. She states that she has had a similar cough after previous surgeries and with general anesthesia. Chest x-ray was reviewed personally no obvious focal infiltrates or pneumonia. There are low lung volumes and minimal right lower lobe atelectasis. Patient does have an incentive spirometer which is at bedside. She has been utilizing it 10 times an hour while awake. She is achieving about 1000 on her IS. She has not started on oral diet yet. She has not started passing flatus. No bowel movement yet. She is resting comfortably in bed. No respiratory distress. Abdominal binder in place. Incisional abdominal pain reportedly well-controlled. There is a midline abdominal incision with postsurgical dressing intact. Some minimal spotting. The patient is seen today November 20, 2023 in follow-up on the regular medical floor. She is currently sitting up in a chair at the bedside. Awake and alert in no acute distress. Maintaining good O2 saturations in the 90s on room air. She denies any worsening cough or congestion. No shortness of breath. No hemoptysis. She is being nourished with TPN at 90 mL/h. Remains NPO. She is working well with the incentive spirometer. Chest x-ray had revealed no evidence of acute pulmonary process. Blood culture revealed no growth. Sodium 136. Potassium 3.2. Bicarb 27. BUN 15. Creatinine 0.41. Glucose 130. Viral screen was negative. She remains on Lovenox for DVT prophylaxis. Lactated Ringer's at 100 mL/h. The patient is seen today November 21, 2023 in follow-up on the regular medical floor. She is awake and alert in no acute distress. Sitting up in a chair at the bedside. Denies any shortness of breath, cough or congestion. Maintaining good O2 saturations in the 90s on room air. She remains on Zosyn. Remains on TPN at 60 mL/h. Plan is to initiate clear liquids today. She has been afebrile. Hemodynamically stable. Continues to work well with the incentive spirometer. White count 6.3. Hemoglobin 10.2. Platelets 140. Sodium 139. Potassium 3.2. Bicarb 30. BUN 12. Creatinine 0.44. Glucose 220. Lovenox for DVT prophylaxis. Objective - Vital Signs Vital signs: Vital Signs Temp 98.0 F 11/21/23 07:21 Pulse 62 11/21/23 07:21 Resp 16 11/21/23 07:21 BP 126/79 11/21/23 07:21 Pulse Ox 98 11/21/23 07:21 FiO2 Intake & Output 11/20/23 11/21/23 11/21/23 18:59 06:59 18:59 Weight 89.358 kg Other: Voiding Method Toilet Toilet # Voids 2 1 - Exam GENERAL EXAM: Alert, 73-year-old female, up in a chair, in no apparent distress. HEAD: Normocephalic. EYES: Normal reaction of pupils, equal size. NOSE: Clear with pink turbinates. THROAT: No erythema or exudates. NECK: No masses, no JVD. CHEST: No chest wall deformity. LUNGS: Equal air entry with no crackles, wheeze, rhonchi or dullness. On room air CVS: S1 and S2 normal with no audible murmur, regular rhythm. ABDOMEN: Abdominal dressing dry and intact. No hepatosplenomegaly, normal bowel sounds, no guarding or rigidity. SPINE: No scoliosis or deformity SKIN: No rashes CENTRAL NERVOUS SYSTEM: No focal deficits, tone is normal in all 4 extremities. EXTREMITIES: There is no peripheral edema. No clubbing, no cyanosis. Peripheral pulses are intact. - Labs CBC & Chem 7: 11/21/23 04:44 11/21/23 04:44 Labs: Abnormal Lab Results - Last 24 Hours (Table) 11/19/23 11/19/23 11/20/23 Range/Units 17:39 21:00 00:48 RBC (4.10-5.20) X 10*6/uL Hgb (12.0-15.0) g/dL Hct (37.2-46.3) % Immature Gran # (0.00-0.04) X 10*3/uL Lymphocytes # (0.90-5.00) X 10*3/uL Potassium (3.5-5.1) mmol/L Creatinine (0.52-1.04) mg/dL Glucose (74-99) mg/dL POC Glucose (mg/dL) 113 H 124 H 135 H (70-110) mg/dL Calcium (8.4-10.2) mg/dL 11/20/23 11/20/23 11/21/23 Range/Units 11:23 16:35 00:56 RBC (4.10-5.20) X 10*6/uL Hgb (12.0-15.0) g/dL Hct (37.2-46.3) % Immature Gran # (0.00-0.04) X 10*3/uL Lymphocytes # (0.90-5.00) X 10*3/uL Potassium (3.5-5.1) mmol/L Creatinine (0.52-1.04) mg/dL Glucose (74-99) mg/dL POC Glucose (mg/dL) 121 H 139 H 147 H (70-110) mg/dL Calcium (8.4-10.2) mg/dL 11/21/23 11/21/23 11/21/23 Range/Units 04:44 04:44 05:54 RBC 3.37 L (4.10-5.20) X 10*6/uL Hgb 10.2 L (12.0-15.0) g/dL Hct 31.6 L (37.2-46.3) % Immature Gran # 0.07 H (0.00-0.04) X 10*3/uL Lymphocytes # 0.76 L (0.90-5.00) X 10*3/uL Potassium 3.2 L (3.5-5.1) mmol/L Creatinine 0.44 L (0.52-1.04) mg/dL Glucose 120 H (74-99) mg/dL POC Glucose (mg/dL) 115 H (70-110) mg/dL Calcium 8.0 L (8.4-10.2) mg/dL Microbiology - Last 24 Hours (Table) 11/14/23 21:47 Blood Culture - Final Blood Assessment and Plan Assessment: Postsurgical cough improved, stable and on room air, viral screen negative Postoperative atelectasis, chest x-ray reveals no acute pulmonary process Small bowel obstruction, status post operative day #5, following exploratory laparotomy with lysis of adhesions and small bowel resections x 2 with anastomosis History of cholecystectomy Acute pancreatitis History of GERD History of hyperlipidemia Former tobacco smoker Plan: The patient was seen and evaluated Labs and medications reviewed Working with the incentive spirometer Remains on TPN Initiated on clear liquids today Lovenox for DVT prophylaxis Increase her activity as tolerated This patient was seen independently by the pulmonary nurse practitioner addressing pulmonary issues I have personally seen and examined the patient, performed the documentation and the assessment and plan as written. Number of minutes spent on the visit: 24.
[2023-11-21 11:58] LABS: Glucose,Whole Blood 110 mg/dL (70-110)
[2023-11-21] MEDS ORDERED: Potassium Replacement Protocol 1 EACH MISC MISCELLANE PRN (13:58)
[2023-11-21] MEDS ORDERED: Magnesium Replacement Protocol 1 EACH MISC MISCELLANE PRN (13:58)
--- NOTE | 2023-11-21 16:00 | PN ---
PROGRESS NOTE DATE OF SERVICE: 11/21/2023 SUBJECTIVE: This is a 73-year-old woman who was admitted with acute pancreatitis, UTI and small bowel obstruction, underwent cholecystectomy and as well as lysis of adhesions and small bowel resection. The patient is being closely monitored. No chest pain. No palpitation. PAST MEDICAL HISTORY: Reviewed. REVIEW OF SYSTEMS: A 14-point review of systems negative except as mentioned earlier. CURRENT MEDICATIONS: Reviewed include TPN, rest of medications noted. PHYSICAL EXAMINATION: VITAL SIGNS: Pulse is 62, blood pressure 120/70, respirations 16. CHEST: A few scattered rhonchi and crackles. ABDOMEN: Soft, status post surgery. LEGS: No edema. NERVOUS SYSTEM: Nonfocal. LABORATORY DATA: Noted. ASSESSMENT: 1. Acute pancreatitis, status post cholecystectomy. 2. Small bowel obstruction, status post lysis of adhesions and bowel resection. 3. Hyperlipidemia. 4. On TPN. 5. Degenerative joint disease. 6. Multiple complex medical issues. RECOMMENDATIONS: This is a 73-year-old woman who presented with multiple medical problems. At this time, I recommend to continue current medications, continue symptomatic treatment. Otherwise, DVT prophylaxis. TPN. Monitor lines closely. Supplement potassium. Guarded prognosis because of multiple complex medical issues. Further recommendations to follow. Diet per Surgery. Empiric antibiotics will to be continued. MMODL / IJN: [id number] /
[2023-11-21] MEDS: IPRATROPIUM-ALBUTEROL 3 ML NEB INHALATION SCH (16:09)
[2023-11-21 16:50] LABS: Glucose,Whole Blood 120 mg/dL (70-110)
[2023-11-21] MEDS: ACETAMINOPHEN TAB 325 MG TAB PO PRN (20:46)
[2023-11-21 21:04] LABS: Glucose,Whole Blood 118 mg/dL (70-110)
[2023-11-22 00:32] LABS: Glucose,Whole Blood 96 mg/dL (70-110)
[2023-11-22 05:44] LABS: Glucose,Whole Blood 116 mg/dL (70-110)
[2023-11-22 09:12] LABS: Basophils # (A) 0.03 X 10*3/uL (0.00-0.10); Basophils % (A) 0.5 %; Eosinophils % (A) 4.9 %; HCT 31.1 % (37.2-46.3); HGB 10.1 g/dL (12.0-15.0); Lymphocytes # (A) 1.03 X 10*3/uL (0.90-5.00); Lymphocytes % (A) 16.7 %; MCHC 32.5 g/dL (32.0-37.0); MCV 92.3 FL (80.0-97.0); Mean Platelet Volume 11.7 FL (9.5-12.2); Monocytes # (A) 0.52 X 10*3/uL (0.20-1.00); Monocytes % (A) 8.4 %; NRBC Per 100 WBC 0 X 10*3/uL (0.00-0.01); Neutrophils # (A) 4.22 X 10*3/uL (1.80-7.70); Neutrophils % (A) 68.4 %; Platelet Count 153 X 10*3/uL (140-440); RBC 3.37 X 10*6/uL (4.10-5.20); WBC 6.17 X 10*3/uL (4.50-10.00)
[2023-11-22 09:17] VITALS: RESP 17
--- NOTE | 2023-11-22 10:00 | P.PN ---
Subjective Progress Note Date: 11/22/23 Principal diagnosis: Small bowel obstruction Patient doing well today. She is having multiple looser stools. No nausea or vomiting. Tolerating clears. Hungry for more to eat. Objective - Vital Signs Vital signs: Vital Signs Temp 97.4 F L 11/22/23 07:02 Pulse 60 11/22/23 07:02 Resp 17 11/22/23 07:02 BP 143/83 11/22/23 07:02 Pulse Ox 99 11/22/23 07:02 FiO2 Intake & Output 11/21/23 11/22/23 11/22/23 18:59 06:59 18:59 Intake Total 1011 Balance 1011 Intake: Intake, IV Titration 1011 Amount Mvi, Adult No.4 with Vit 1011 K 10 ml Trace (Conc-1Ml/ Dose) 1 ml In Amino Acid 5%-D20w+Lytes*E* 1,000 ml @ 60 mls/hr IV .BY DURATION [facility] Rx#: [id number] Other: Voiding Method Toilet # Voids 5 - Exam Abdomen: Soft, nondistended, dressing clean and dry, minimal tenderness - Labs CBC & Chem 7: 11/22/23 03:04 11/21/23 04:44 Labs: Abnormal Lab Results - Last 24 Hours (Table) 11/21/23 11/21/23 11/21/23 Range/Units 04:44 16:48 21:02 RBC 3.37 L (4.10-5.20) X 10*6/uL Hgb 10.2 L (12.0-15.0) g/dL Hct 31.6 L (37.2-46.3) % Immature Gran # 0.07 H (0.00-0.04) X 10*3/uL Lymphocytes # 0.76 L (0.90-5.00) X 10*3/uL POC Glucose (mg/dL) 120 H 118 H (70-110) mg/dL 11/22/23 11/22/23 Range/Units 03:04 05:43 RBC 3.37 L (4.10-5.20) X 10*6/uL Hgb 10.1 L (12.0-15.0) g/dL Hct 31.1 L (37.2-46.3) % Immature Gran # 0.07 H (0.00-0.04) X 10*3/uL Lymphocytes # (0.90-5.00) X 10*3/uL POC Glucose (mg/dL) 116 H (70-110) mg/dL Assessment and Plan (1) SBO (small bowel obstruction) Narrative/Plan: Patient doing well today. Continue advancing diet. Ambulate. Possible discharge tomorrow. Current Visit: Yes Status: Acute Code(s): K56.609 - UNSP INTESTNL OBST, UNSP TO PARTIAL VERSUS COMPLETE OBST SNOMED Code(s): 744622158
[2023-11-22 10:21] LABS: Magnesium 1.8 mg/dL (1.5-2.4)
[2023-11-22 10:29] LABS: ALT 13 U/L (8-44); AST 17 U/L (13-35); Albumin 2.7 g/dL (3.8-4.9); Alkaline Phosphatase 63 U/L (41-126); Calcium 7.9 mg/dL (8.7-10.3); Carbon Dioxide 27.9 mmol/L (21.6-31.8); Chloride 106 mmol/L (96-109); Globulin 1.8 g/dL (1.6-3.3); Glucose 125 mg/dL (70-110); Potassium 3.4 mmol/L (3.5-5.5); Sodium 142 mmol/L (135-145); Total Bilirubin 0.3 mg/dL (0.3-1.2); Total Protein 4.5 g/dL (6.2-8.2)
[2023-11-22] MEDS: MAGNESIUM SULFATE-D5W PMX 1 GM in DEXTROSE/WATER 1 100ML.BAG IVPB ONE (11:06)
[2023-11-22 11:30] LABS: Glucose,Whole Blood 99 mg/dL (70-110)
--- NOTE | 2023-11-22 11:56 | P.PN ---
Subjective Progress Note Date: 11/22/23 Patient is a 73-year-old female admitted back on 11/14/2023 with abdominal pain. Found to have small bowel obstruction. On 11/16/2023 she did undergo exploratory laparotomy with lysis of adhesions and small bowel resection x 2 with anastomosis. Patient has been recovering on the medical surgical unit. WBC count 8.5, hemoglobin 11, hematocrit 34.3, platelets 138. CMP: Sodium 143, potassium 4.1, chloride 109, serum bicarb 24, BUN 22, creatinine 0.6, glucose 82. Patient is currently resting comfortably in bed, on room air, SpO2 99%. A chest x-ray was performed showing minimal atelectasis on the right. Afebrile. Here, chiefly as the patient has a cough. Patient's cough is described as nonproductive and persistent after her recent abdominal surgery. She denies any sputum production. She is not febrile. Denies URI-like symptoms. No chest pain. Denies pre-existing lung disease. She states that she has had a similar cough after previous surgeries and with general anesthesia. Chest x-ray was reviewed personally no obvious focal infiltrates or pneumonia. There are low lung volumes and minimal right lower lobe atelectasis. Patient does have an incentive spirometer which is at bedside. She has been utilizing it 10 times an hour while awake. She is achieving about 1000 on her IS. She has not started on oral diet yet. She has not started passing flatus. No bowel movement yet. She is resting comfortably in bed. No respiratory distress. Abdominal binder in place. Incisional abdominal pain reportedly well-controlled. There is a midline abdominal incision with postsurgical dressing intact. Some minimal spotting. The patient is seen today November 20, 2023 in follow-up on the regular medical floor. She is currently sitting up in a chair at the bedside. Awake and alert in no acute distress. Maintaining good O2 saturations in the 90s on room air. She denies any worsening cough or congestion. No shortness of breath. No hemoptysis. She is being nourished with TPN at 90 mL/h. Remains NPO. She is working well with the incentive spirometer. Chest x-ray had revealed no evidence of acute pulmonary process. Blood culture revealed no growth. Sodium 136. Potassium 3.2. Bicarb 27. BUN 15. Creatinine 0.41. Glucose 130. Viral screen was negative. She remains on Lovenox for DVT prophylaxis. Lactated Ringer's at 100 mL/h. The patient is seen today November 21, 2023 in follow-up on the regular medical floor. She is awake and alert in no acute distress. Sitting up in a chair at the bedside. Denies any shortness of breath, cough or congestion. Maintaining good O2 saturations in the 90s on room air. She remains on Zosyn. Remains on TPN at 60 mL/h. Plan is to initiate clear liquids today. She has been afebrile. Hemodynamically stable. Continues to work well with the incentive spirometer. White count 6.3. Hemoglobin 10.2. Platelets 140. Sodium 139. Potassium 3.2. Bicarb 30. BUN 12. Creatinine 0.44. Glucose 220. Lovenox for DVT prophylaxis. The patient is seen today November 22, 2023 in follow-up on the regular medical floor. She is up ambulating in her room. Awake and alert in no acute distress. Maintaining good O2 saturations in the high 90s on room air. She is afebrile. Hemodynamically stable. Feeling better each day. She is passing flatus. Having bowel movements. Tolerating a full liquid diet today. White count 6.1. Hemoglobin 10.1. Platelets 153. Sodium 142. Potassium 3.4. Bicarb 28. BUN 11. Creatinine 0.4. Glucose 125. She remains on Zosyn. Lovenox for DVT prophylaxis. She remains on TPN at 60 mL/h for nutritional support. Objective - Vital Signs Vital signs: Vital Signs Temp 97.4 F L 11/22/23 07:02 Pulse 60 11/22/23 07:02 Resp 17 11/22/23 07:02 BP 143/83 11/22/23 07:02 Pulse Ox 99 11/22/23 07:02 FiO2 Intake & Output 11/21/23 11/22/23 11/22/23 18:59 06:59 18:59 Intake Total 1011 Balance 1011 Intake: Intake, IV Titration 1011 Amount Mvi, Adult No.4 with Vit 1011 K 10 ml Trace (Conc-1Ml/ Dose) 1 ml In Amino Acid 5%-D20w+Lytes*E* 1,000 ml @ 60 mls/hr IV .BY DURATION [facility] Rx#: [id number] Other: Voiding Method Toilet # Voids 5 - Exam GENERAL EXAM: Alert, very pleasant 73-year-old female, ambulating in her room, on room air, in no apparent distress. HEAD: Normocephalic. EYES: Normal reaction of pupils, equal size. NOSE: Clear with pink turbinates. THROAT: No erythema or exudates. NECK: No masses, no JVD. CHEST: No chest wall deformity. LUNGS: Equal air entry with no crackles, wheeze, rhonchi or dullness. CVS: S1 and S2 normal with no audible murmur, regular rhythm. ABDOMEN: Abdominal dressing dry and intact. No hepatosplenomegaly, normal bowel sounds, no guarding or rigidity. SPINE: No scoliosis or deformity SKIN: No rashes CENTRAL NERVOUS SYSTEM: No focal deficits, tone is normal in all 4 extremities. EXTREMITIES: There is no peripheral edema. No clubbing, no cyanosis. Peripheral pulses are intact. - Labs CBC & Chem 7: 11/22/23 03:04 11/22/23 03:04 Labs: Abnormal Lab Results - Last 24 Hours (Table) 11/21/23 11/21/23 11/22/23 Range/Units 16:48 21:02 03:04 RBC 3.37 L (4.10-5.20) X 10*6/uL Hgb 10.1 L (12.0-15.0) g/dL Hct 31.1 L (37.2-46.3) % Immature Gran # 0.07 H (0.00-0.04) X 10*3/uL Potassium (3.5-5.5) mmol/L Creatinine (0.6-1.5) mg/dL BUN/Creatinine Ratio (12.00-20.00) Ratio Glucose (70-110) mg/dL POC Glucose (mg/dL) 120 H 118 H (70-110) mg/dL Calcium (8.7-10.3) mg/dL Total Protein (6.2-8.2) g/dL Albumin (3.8-4.9) g/dL Albumin/Globulin Ratio (1.60-3.17) Ratio 11/22/23 11/22/23 Range/Units 03:04 05:43 RBC (4.10-5.20) X 10*6/uL Hgb (12.0-15.0) g/dL Hct (37.2-46.3) % Immature Gran # (0.00-0.04) X 10*3/uL Potassium 3.4 L (3.5-5.5) mmol/L Creatinine 0.4 L (0.6-1.5) mg/dL BUN/Creatinine Ratio 27.50 H (12.00-20.00) Ratio Glucose 125 H (70-110) mg/dL POC Glucose (mg/dL) 116 H (70-110) mg/dL Calcium 7.9 L (8.7-10.3) mg/dL Total Protein 4.5 L (6.2-8.2) g/dL Albumin 2.7 L (3.8-4.9) g/dL Albumin/Globulin Ratio 1.50 L (1.60-3.17) Ratio Assessment and Plan Assessment: Postsurgical cough improved, stable and on room air, viral screen negative Postoperative atelectasis, chest x-ray reveals no acute pulmonary process Small bowel obstruction, status post operative day #6, following exploratory laparotomy with lysis of adhesions and small bowel resections x 2 with anastomosis History of cholecystectomy Acute pancreatitis History of GERD History of hyperlipidemia Former tobacco smoker Plan: The patient was seen and evaluated Labs and medications reviewed Remains on TPN Initiated on full liquid today Lovenox for DVT prophylaxis Stable and on room air This patient was seen independently by the pulmonary nurse practitioner addressing pulmonary issues I have personally seen and examined the patient, performed the documentation and the assessment and plan as written. Number of minutes spent on the visit: 23.
[2023-11-22] MEDS: POTASSIUM CHLORIDE 20 MEQ in WATER FOR INJECTION 1 100ML.BAG IVPB SCH (12:22)
[2023-11-22] MEDS ORDERED: Magnesium Replacement Protocol 1 EACH MISC MISCELLANE PRN (16:02)
[2023-11-22] MEDS ORDERED: Potassium Replacement Protocol 1 EACH MISC MISCELLANE PRN (16:02)
[2023-11-22 16:32] LABS: Glucose,Whole Blood 110 mg/dL (70-110)
[2023-11-22 21:27] LABS: Glucose,Whole Blood 111 mg/dL (70-110)
[2023-11-23 00:16] LABS: Glucose,Whole Blood 119 mg/dL (70-110)
--- NOTE | 2023-11-23 02:40 | PN ---
PROGRESS NOTE DATE OF SERVICE: 11/22/2023 SUBJECTIVE: This is a 73-year-old woman who was admitted with acute pancreatitis, UTI, and small bowel obstruction, underwent exploratory laparotomy, lysis of adhesions as well as bowel resection. The patient has some postoperative atelectasis. Multiple consultants are following the patient closely. Diet is being advanced. PAST MEDICAL HISTORY: Reviewed. REVIEW OF SYSTEMS: 14-point review is negative except as mentioned earlier. CURRENT MEDICATIONS: Reviewed. PHYSICAL EXAMINATION: VITAL SIGNS: Pulse is 62, blood pressure 103/60, respirations 17. CHEST: A few scattered rhonchi and crackles. ABDOMEN: Soft, nontender. LEGS: No edema. No swelling. NERVOUS SYSTEM: Nonfocal. LABORATORY DATA: WBC 8.2, hemoglobin 11. ASSESSMENT: 1. Small bowel obstruction, status post lysis of adhesions, bowel resection. 2. Acute pancreatitis on presentation. 3. Hyperlipidemia. 4. On TPN. 5. Degenerative joint disease. 6. Hypokalemia. RECOMMENDATIONS AND DISCUSSION: In this 73-year-old woman presented with multiple complex medical issues, we will monitor the patient closely. Continue the current medications, symptomatic treatment, and the TPN can be reduced once diet is advanced. Potassium supplementation. Repeat labs. DVT prophylaxis. Closely follow with Surgery. Incentive spirometry. Bronchodilators. We will continue the antibiotics and repeat labs as mentioned. Guarded prognosis. Further recommendations to follow. See orders for details. MMODL / IJN: [id number] /
[2023-11-23 03:38] LABS: ALT 18 U/L (4-34); AST 24 U/L (14-36); African American GFR (CKD) >90 (>60 ml/min/1.73 sqM); Albumin 2.8 g/dL (3.5-5.0); Albumin/Globulin Ratio 1.2; Alkaline Phosphatase 64 U/L (38-126); Anion Gap 4 mmol/L; Blood Urea Nitrogen 13 mg/dL (7-17); Calcium 8.7 mg/dL (8.4-10.2); Carbon Dioxide 30 mmol/L (22-30); Chloride 106 mmol/L (98-107); Globulin 2.4 g/dL; Glucose 85 mg/dL (74-99); Non-African American GFR(CKD) >90 (>60 ml/min/1.73 sqM); Phosphorus 4.1 mg/dL (2.5-4.5); Sodium 140 mmol/L (137-145); Total Bilirubin 0.5 mg/dL (0.2-1.3); Total Protein 5.2 g/dL (6.3-8.2)
[2023-11-23 05:58] LABS: Glucose,Whole Blood 125 mg/dL (70-110)
[2023-11-23 08:03] VITALS: BP 119/65; PULSE 57; TEMP 97.5
[2023-11-23 08:53] LABS: Basophils # (A) 0.05 X 10*3/uL (0.00-0.10); Basophils % (A) 0.7 %; Eosinophils # (A) 0.42 X 10*3/uL (0.04-0.35); Eosinophils % (A) 5.7 %; HCT 35.6 % (37.2-46.3); HGB 11.2 g/dL (12.0-15.0); Lymphocytes # (A) 1.15 X 10*3/uL (0.90-5.00); Lymphocytes % (A) 15.7 %; MCH 30.4 pg (27.0-32.0); MCHC 31.5 g/dL (32.0-37.0); MCV 96.7 FL (80.0-97.0); Monocytes # (A) 0.66 X 10*3/uL (0.20-1.00); NRBC Per 100 WBC 0 X 10*3/uL (0.00-0.01); Neutrophils # (A) 4.96 X 10*3/uL (1.80-7.70); Neutrophils % (A) 67.7 %; Platelet Count 180 X 10*3/uL (140-440); RBC 3.68 X 10*6/uL (4.10-5.20); WBC 7.33 X 10*3/uL (4.50-10.00)
[2023-11-23 11:38] LABS: Glucose,Whole Blood 74 mg/dL (70-110)
--- NOTE | 2023-11-23 12:18 | P.PN ---
Subjective Progress Note Date: 11/23/23 CHIEF COMPLAINT: Small bowel obstruction HISTORY OF PRESENT ILLNESS: Patient is postop day #7 status post lysis of extensive adhesions and small bowel resection x 2 with anastomosis. Patient reports her Pain is controlled. She denies any nausea or vomiting. She is having bowel movements. She is tolerating diet. Afebrile. WBC 7.33 Hgb 11.2 platelets 180 PHYSICAL EXAM: VITAL SIGNS: Reviewed. GENERAL: Well-developed in no acute distress. ABDOMEN: Soft. Nondistended. Nontender. Incisional dressing clean dry and intact NEUROLOGIC: Alert and oriented. Cranial nerves II through XII grossly intact. ASSESSMENT: 1. Small bowel obstruction 2. Cough likely due to atelectasis. Now improved PLAN: -Patient tolerating regular diet. Wean off TPN. -Patient can be discharged from surgical standpoint Physician Guide Tour note has been reviewed by physician. Signing provider agrees with the documented findings, assessment, and plan of care. Objective - Vital Signs Vital signs: Vital Signs Temp 97.5 F L 11/23/23 07:05 Pulse 57 L 11/23/23 08:00 Resp 17 11/23/23 08:00 BP 119/65 11/23/23 07:05 Pulse Ox 98 11/23/23 07:05 FiO2 Intake & Output 11/22/23 11/23/23 11/23/23 18:59 06:59 18:59 Intake Total 1011 Balance 1011 Intake: Intake, IV Titration 1011 Amount Mvi, Adult No.4 with Vit 1011 K 10 ml Trace (Conc-1Ml/ Dose) 1 ml In Amino Acid 5%-D20w+Lytes*E* 1,000 ml @ 60 mls/hr IV .BY DURATION [facility] Rx#: [id number] Other: Voiding Method Toilet Toilet # Voids 4 2 - Labs CBC & Chem 7: 11/23/23 02:45 11/23/23 02:45 Labs: Abnormal Lab Results - Last 24 Hours (Table) 11/22/23 11/23/23 11/23/23 Range/Units 21:25 00:12 02:45 RBC (4.10-5.20) X 10*6/uL Hgb (12.0-15.0) g/dL Hct (37.2-46.3) % MCHC (32.0-37.0) g/dL Immature Gran # (0.00-0.04) X 10*3/uL Eosinophils # (0.04-0.35) X 10*3/uL Creatinine 0.51 L (0.52-1.04) mg/dL POC Glucose (mg/dL) 111 H 119 H (70-110) mg/dL Total Protein 5.2 L (6.3-8.2) g/dL Albumin 2.8 L (3.5-5.0) g/dL 11/23/23 11/23/23 Range/Units 02:45 05:57 RBC 3.68 L (4.10-5.20) X 10*6/uL Hgb 11.2 L (12.0-15.0) g/dL Hct 35.6 L (37.2-46.3) % MCHC 31.5 L (32.0-37.0) g/dL Immature Gran # 0.09 H (0.00-0.04) X 10*3/uL Eosinophils # 0.42 H (0.04-0.35) X 10*3/uL Creatinine (0.52-1.04) mg/dL POC Glucose (mg/dL) 125 H (70-110) mg/dL Total Protein (6.3-8.2) g/dL Albumin (3.5-5.0) g/dL
--- NOTE | 2023-11-24 11:13 | P.DS ---
Providers Date of admission: 11/14/23 19:06 Expected date of discharge: 11/23/23 Attending physician: Jeyson Mccloud MD Consults: 11/14/23 19:10 Consult Physician Urgent Consulting Provider: Escobar Silva Consult Reason/Comments: Small bowel obstruction Do you want consulting provider notified?: Yes 11/18/23 13:44 Consult Physician Routine Consulting Provider: Andrea Mullins Consult Reason/Comments: cough Do you want consulting provider notified?: Yes Primary care physician: Merlin Andrews [facility] Course: Final diagnosis -Acute pancreatitis; patient is status postcholecystectomy, liver enzymes along with amylase and lipase are normalized -Intractable nausea and vomiting/small bowel obstruction, status post lysis of adhesions with bowel resection 11/16/2023, resolved -History of hyperlipidemia -History of osteoarthritis -History of depression/anxiety -Obesity with a BMI 31.8 -GI prophylaxis -DVT prophylaxis; SCDs/subcu heparin -full code Discharge disposition Patient is being discharged in a stable condition with guarded prognosis to home. Patient will follow-up with Dr. Andrews in the outpatient setting upon discharge. Patient is to continue with close outpatient follow-up with general surgery as scheduled. Total time taken is greater than 35 minutes. Hospital course This is a 73-year-old female who was recently admitted with acute pancreatitis status post recent cholecystectomy. LFTs were elevated and patient also had intractable nausea and vomiting with concerns of small bowel obstruction. Patient underwent imaging and surgical intervention including lysis of adhesions with bowel resection on 11/16/2023 with general surgery. Patient continued to show slow improvement although was strict n.p.o. and maintained on TPN. Patient is now having bowel movements and denies any further abdominal pain. Patient has been transition from TPN to regular diet and tolerating. Recommend to slowly increase diet as tolerated and close outpatient follow-up with primary care provider as well as general surgery. Patient has been cleared for discharge and would like to go home. Patient reports to feeling well and is adamant she is leaving today. Please refer to other consultation notes for further HPI. Currently no reports of chest pain, shortness of breath, or palpitations. Patient is afebrile. No reports of nausea or vomiting and pat ient is tolerating diet. Patient will be discharged home today. Guarded prognosis given significant comorbidities Physical exam: Gen: This is a 73-year-old female who is awake, alert and oriented x 3, well- developed, well-nourished, obese HEENT: Head is atraumatic, normocephalic. Pupils equal, round. Sclerae is anicteric. NECK: Supple. No JVD. No lymphadenopathy. No thyromegaly. LUNGS: Clear to auscultation. No wheezes or rhonchi. No intercostal retractions. HEART: Regular rate and rhythm. No murmur. ABDOMEN: Soft. Bowel sounds are present. No masses. No tenderness. EXTREMITIES: No pedal edema. No calf tenderness. NEUROLOGICAL: Patient is awake, alert and oriented x3. Cranial nerves 2 through 12 are grossly intact. Please refer to medication reconciliation sheet for a list of medications. The impression and plan of care has been dictated by Larisa Malik, Nurse Practitioner as directed. Dr. Darrion MD I have performed a history and examination and MDM of this patient, discussed the same with the dictator, and agree with the dictator's assessment and plan as written ,documented as a scribe. Based on total visit time, I have performed more than 50% of the visit. Patient Condition at Discharge: Good Plan - Discharge Summary New Discharge Prescriptions: New Acetaminophen Tab [Tylenol] 650 mg PO Q6HR PRN tab PRN Reason: Mild Pain Or Fever > 100.5 Continue Multivitamins, Thera [Multivitamin (formulary)] 1 tab PO DAILY Ferrous Sulfate [Iron (65 MG Elemental)] 325 mg PO DAILY Celecoxib [CeleBREX] 200 mg PO BID Simvastatin [Zocor] 40 mg PO HS Citalopram Hydrobromide [Citalopram HBr] 20 mg PO HS Famotidine [Pepcid] 40 mg PO HS Ascorbic Acid [Vitamin C] 1,000 mg PO DAILY Cyanocobalamin (Vitamin B-12) [Vitamin B-12] 1,000 mcg PO DAILY Gabapentin [Neurontin] 100 mg PO BID Cholecalciferol [Vitamin D3 (25 Mcg = 1000 Iu)] 25 mcg PO DAILY Omeprazole 40 mg PO DAILY Solifenacin Succinate [Vesicare] 5 mg PO DAILY Zinc Sulfate 50 mg PO DAILY HYDROcodone/APAP 7.5-325MG [[place] 7.5-325] 1 tab PO BID PRN PRN Reason: Pain Discharge Medication List Celecoxib [CeleBREX] 200 mg PO BID 04/17/16 [History] Citalopram Hydrobromide [Citalopram HBr] 20 mg PO HS 04/17/16 [History] Ferrous Sulfate [Iron (65 MG Elemental)] 325 mg PO DAILY 04/17/16 [History] Multivitamins, Thera [Multivitamin (formulary)] 1 tab PO DAILY 04/17/16 [History] Simvastatin [Zocor] 40 mg PO HS 04/17/16 [History] Famotidine [Pepcid] 40 mg PO HS 03/07/20 [History] Ascorbic Acid [Vitamin C] 1,000 mg PO DAILY 11/14/23 [History] Cholecalciferol [Vitamin D3 (25 Mcg = 1000 Iu)] 25 mcg PO DAILY 11/14/23 [History] Cyanocobalamin (Vitamin B-12) [Vitamin B-12] 1,000 mcg PO DAILY 11/14/23 [History] Gabapentin [Neurontin] 100 mg PO BID 11/14/23 [History] HYDROcodone/APAP 7.5-325MG [[place] 7.5-325] 1 tab PO BID PRN 11/14/23 [History] Omeprazole 40 mg PO DAILY 11/14/23 [History] Solifenacin Succinate [Vesicare] 5 mg PO DAILY 11/14/23 [History] Zinc Sulfate 50 mg PO DAILY 11/14/23 [History] Acetaminophen Tab [Tylenol] 650 mg PO Q6HR PRN tab 11/23/23 [Rx] Follow up Appointment(s)/Referral(s): Merlin Andrews DO [Primary Care Provider] - 1-2 days (Office is not answering at time of discharge. Please call for follow-up appointment.) Escobar Silva MD [STAFF PHYSICIAN] - 12/01/23 8:15 am Activity/Diet/Wound Care/Special Instructions: Activity limited until follow-up Follow-up with primary care provider Follow-up with general surgery Continue current diet and slowly advance as tolerated Discharge Disposition: HOME SELF-CARE
== END 2023-11-23 14:05 | disposition home or self-care (01) | DRG 335 ==
LOC: EC 16:19 → 5NMEDONC 19:06 → 4SSUR 19:53
PROVIDERS: ADMIT Internal Medicine; ATTEND Internal Medicine
PROC: 0DB80ZX Excision of Small Intestine, Open Approach, Diagnostic (ICD-10-PCS; 2023-11-16)
PROC: 0JN80ZZ Release Abdomen Subcutaneous Tissue and Fascia, Open Approach (ICD-10-PCS; 2023-11-16)
PROC: 0DN80ZZ Release Small Intestine, Open Approach (ICD-10-PCS; principal; 2023-11-16 10:05)
PROC: 02HV33Z Insertion of Infusion Device into Superior Vena Cava, Percutaneous Approach (ICD-10-PCS; 2023-11-18)
PROC: 4A02X4A Measurement of Cardiac Electrical Activity, Guidance, External Approach (ICD-10-PCS; 2023-11-18)
DX: K56.51 Intestinal adhesions [bands], with partial obstruction (principal); K85.90 Acute pancreatitis without necrosis or infection, unspecified; J98.11 Atelectasis; N39.0 Urinary tract infection, site not specified; E66.9 Obesity, unspecified; Z68.31 Body mass index [BMI] 31.0-31.9, adult; K21.9 Gastro-esophageal reflux disease without esophagitis; E78.5 Hyperlipidemia, unspecified; F32.A Depression, unspecified; F41.9 Anxiety disorder, unspecified; M19.90 Unspecified osteoarthritis, unspecified site; E87.6 Hypokalemia; Z87.891 Personal history of nicotine dependence; Z90.710 Acquired absence of both cervix and uterus; Z96.642 Presence of left artificial hip joint; Z96.653 Presence of artificial knee joint, bilateral; Z98.84 Bariatric surgery status; Z79.1 Long term (current) use of non-steroidal anti-inflammatories (NSAID); Z79.899 Other long term (current) drug therapy; Z98.1 Arthrodesis status
CPT/HCPCS: 36415; 36573; 71046; 74176; 74177; 80048; 80053; 80061; 81001; 82150; 82330; 83605; 83690; 83735; 84100; 84478; 84484; 85025; 85610; 86850; 86900; 86901; 87040; 87636; 88307; 93005; 96361; 96365; 96366; 96372; 96375; 99285